=== PATIENT | female | born 1970 | race Caucasian/White ===

== ENCOUNTER → 2016-12-22 | Outpatient (CLI) | payer OTHER ==
[~2016-12-22] MED LIST: ACET-1256 PO; ASPI-390 PO; BUPR150T5 PO; MULT1CHW18 PO; PROB1CAP41 PO; PRT/40 PO
--- NOTE | 2016-12-22 11:55 | DIAGNOSTIC IMAGING REPORT ---
CHEST 2 VIEWS ROUTINE CLINICAL HISTORY: Cough. COMPARISON STUDY: Chest radiograph August 02, 2016. FINDINGS: Lung volumes are normal. Lungs are clear. There is no pneumothorax or pleural effusion. Cardiac size is normal. Mediastinal contours are normal. There is no evidence of pulmonary edema. IMPRESSION: No acute cardiopulmonary findings. Electronically signed by: Jenaro Elizabeth M.D. 12/22/2016 11:54 AM Dictated Date/Time: 12/22/2016 11:53 AM
[2016-12-22 16:09] LABS: INFLUENZA B PCR Neg for Influ B (NEG)
[2016-12-22 16:10] LABS: INFLUENZA A PCR POS for Influ A (NEG)
== END | disposition home or self-care (01) ==
LOC: C.RADBC 10:58
PROVIDERS: ATTEND Internal Medicine Geriatric Medicine
DX: R05 Cough (principal)

== ENCOUNTER 2017-04-02 12:39 | Emergency (ER) | payer OTHER ==
[~2017-04-02] VITALS: Ht 160 cm; Wt 102.5 kg
[~2017-04-02 12:39] MED LIST changes: -ACET-1256 PO; -MULT1CHW18 PO; -PRT/40 PO
[2017-04-02 12:47] VITALS: TEMP 36.8; Ht 160 cm; Wt 102.5 kg
[2017-04-02] MEDS ORDERED: SODIUM CHLORIDE 0.9% 1000ML 1,000 ML IV STA (13:20)
--- NOTE | 2017-04-02 13:28 | EMERGENCY ROOM VISIT NOTE ---
History First contact with patient: 13:07 Chief Complaint: FLU LIKE SX Stated Complaint: FEVER,BODYACHES,SORE THROAT,R ADB PN,OVERALL PAIN History of Present Illness The patient is a 46 year old female who presents to the Emergency Room with complaints of fever, abdominal pain and generalized malaise. The patient states that she has not been feeling well and has felt quite fatigued. She states that approximately 1 AM she woke up feeling feverish with chills. She states she has had a sore throat. She reports right ear pain, headache, neck pain. She rates her discomfort a 5/10. She took Tylenol overnight. 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 She contacted employee health who recommended she go to [email or web address] or the emergency department. The patient went to [email or web address] and had a negative urinalysis and a negative rapid strep. They referred her to the emergency department because she had right lower quadrant abdominal tenderness. At [email or web address] her temperature was found to be 100.5F. The patient denies any cough, chest pain, trouble breathing. She denies any vomiting or diarrhea. She denies any urinary symptoms. 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 She states that one patient was a possible meningitis but her CSF cultures have come back negative thus far. The patient has had hysterectomy in the past. Review of Systems A 10 system review of systems was completed with positives and pertinent negatives listed in the HPI. Past Medical/Surgical History Medical Problems: (1) Common Migraine W/O Intractable Migraine (2) Endometriosis Nec (3) Hyperlipidemia Nec/Nos (4) Hypothyroidism Nos (5) Lumbago (6) Obesity, Nos Surgical Problems: (1) Tubal Ligation Status Social History Smoking Status: Never Smoker Alcohol Use: none Drug Use: none Marital Status: Occupation Status: employed Current/Historical Medications Scheduled Lvitszt-Ztzkznocbckdz-Qtdtodbd (Excedrin Migraine), 2 TABS PO PRN Bupropion Hcl (Bupropion Hcl Xl), 300 MG PO QAM Multiple Vitamins W/ Minerals (Multivitamin Gummies Adul), 2 TAB PO QAM Pantoprazole (Pantoprazole Sodium), 40 MG PO QAM Probiotic Product (Probiotic Daily), 1 CAP PO DAILY Scheduled PRN Acetaminophen (Tylenol), 1,000 MG PO Q8 PRN for Pain or Fever Allergies Coded Allergies: Ollie (Verified Allergy, Unknown, ., 04/02/17) Physical Exam Vital Signs Date Time Temp Pulse Resp B/P (MAP) Pulse Ox O2 Delivery O2 Flow Rate FiO2 04/02/17 17:43 83 18 143/88 95 04/02/17 15:58 113 18 160/103 98 Room Air 04/02/17 14:36 100 16 139/94 100 Room Air 04/02/17 12:47 36.8 109 18 153/91 99 Room Air Physical Exam VITALS: Vitals are noted on the nurse's note and reviewed by myself. Vital signs stable. The patient is afebrile. She is slightly tachycardic with heart rate 109 bpm. Her oxygen saturation is 99% on room air. GENERAL: This is a 46-year-old female, in no acute distress, nondiaphoretic, well-developed well-nourished. SKIN: The skin was without rashes, erythema, edema, or bruising. There is no tenting of the skin. Capillary reflex less than 2 seconds. HEAD: Normocephalic atraumatic. EARS: External auditory canals clear, tympanic membranes pearly allen without erythema or effusion bilaterally. EYES: Pupils equal round and reactive to light and accommodation. Conjunctivae without injection, sclerae without icterus. Extraocular movements intact. NOSE: Patent, turbinates without inflammation or discharge. No sinus tenderness. MOUTH: Mucous membranes moist. Tonsils are not enlarged. Pharynx without erythema or exudate. Uvula midline. Airway patent. Tongue does not deviate. NECK: Supple without nuchal rigidity. No lymphadenopathy. No thyromegaly. Cervical spine is nontender. No JVD. HEART: Regular rate and rhythm without murmurs gallops or rubs. LUNGS: Clear to auscultation bilaterally without wheezes, rales or rhonchi. No retractions or accessory muscle use. ABDOMEN: Positive bowel sounds x 4. Soft, right lower quadrant tenderness, without masses or organomegaly. MUSCULOSKELETAL: No muscle atrophy, erythema, or edema noted. Full range of motion in all extremities. Normal gait. Strength 5/5 throughout. NEURO: Patient was alert and oriented to person place and time. No focal neurological deficits. Medical Decision & Procedures ER Provider Diagnostic Interpretation: CHEST ONE VIEW PORTABLE CLINICAL HISTORY: fever SORE THROAT, BODYACHES. COMPARISON STUDY: 12/22/2016 FINDINGS: The cardiac and mediastinal contours are normal. There is no evidence of focal pulmonary consolidation. There is no evidence of failure. No pleural effusions are visualized.[ IMPRESSION: No active disease in the chest. [~ rep ct add3]] CT SCAN OF THE ABDOMEN AND PELVIS WITH IV CONTRAST CLINICAL HISTORY: Right lower quadrant abdominal pain. Fever. COMPARISON STUDY: Abdominal CT dated 08/08/2014. Abdominal ultrasound dated 01/19/2012. TECHNIQUE: Following the IV administration of 115 cc of Optiray 320, CT scan of the abdomen and pelvis is performed from the lung bases to the proximal femora. Images are reviewed in the axial, sagittal, and coronal planes. IV contrast was administered without complication. Automated dose control exposure was utilized. The examination is degraded by large body habitus, and by streak artifact from the body wall abutting the CT gantry. CT DOSE: 884.54 mGy.cm FINDINGS: Lung bases: The heart is normal in size and without pericardial effusion. The lung bases are clear. There is a small hiatal hernia. Liver: The contrast-enhanced liver is mildly enlarged measuring 18.5 cm in length. The liver demonstrates diffusely diminished attenuation consistent with hepatic steatosis. There is minimal central intrahepatic biliary ductal dilatation. A 1.3 cm low-attenuation lesion in the right lobe on image #116 is unchanged from prior studies and likely represents a benign hemangioma. The hepatic veins and portal veins are patent. Gallbladder: Surgically absent noting clips in the gallbladder fossa. Spleen: Normal in size and attenuation. Pancreas: Unremarkable. Adrenal glands: Unremarkable. Kidneys: The contrast enhanced kidneys are normal in size and without hydronephrosis. There is mild fullness of the renal collecting system bilaterally. The kidneys enhance symmetrically. Abdominal vasculature: The abdominal aorta is normal in course and caliber noting scattered foci of atherosclerotic calcification. Bowel: The small bowel and colon are normal in course and caliber. There are several duodenal diverticula. There is mild colonic diverticulosis without CT evidence of acute diverticulitis. Moderate colonic fecal retention is observed. The appendix is well-visualized and normal. Peritoneum: There is no intraperitoneal free air or abdominal ascites. Lymphadenopathy: None. Pelvic viscera: The bladder is normal as visualized. The uterus is surgically absent. There are numerous left ovarian follicles. Skeletal structures: No lytic or blastic lesions are seen. IMPRESSION: 1. There are no acute infectious or inflammatory findings in the abdomen or pelvis. 2. Hepatomegaly and mild hepatic steatosis. 3. Status post hysterectomy and cholecystectomy. 4. Mild colonic diverticulosis without CT evidence of acute diverticulitis. 5. Additional findings as above. Laboratory Results 04/02/17 13:30 Red Blood Count 4.76, Mean Corpuscular Volume 83.6, Mean Corpuscular Hemoglobin 28.4, Mean Corpuscular Hemoglobin Concent 33.9, Mean Platelet Volume 9.4, Neutrophils (%) (Auto) 76.3, Lymphocytes (%) (Auto) 14.9, Monocytes (%) (Auto) 7.7, Eosinophils (%) (Auto) 0.6, Basophils (%) (Auto) 0.4, Neutrophils # (Auto) 6.46, Lymphocytes # (Auto) 1.26, Monocytes # (Auto) 0.65, Eosinophils # (Auto) 0.05, Basophils # (Auto) 0.03 04/02/17 13:30 Test 04/02/17 13:30 04/02/17 13:35 04/02/17 13:37 White Blood Count 8.46 K/uL (4.8-10.8) Red Blood Count 4.76 M/uL (4.2-5.4) Hemoglobin 13.5 g/dL (12.0-16.0) Hematocrit 39.8 % (37-47) Mean Corpuscular Volume 83.6 fL (80-100) Mean Corpuscular Hemoglobin 28.4 pg (25-34) Mean Corpuscular Hemoglobin Concent 33.9 g/dl (32-36) Platelet Count 203 K/uL (130-400) Mean Platelet Volume 9.4 fL (7.4-10.4) Neutrophils (%) (Auto) 76.3 % Lymphocytes (%) (Auto) 14.9 % Monocytes (%) (Auto) 7.7 % Eosinophils (%) (Auto) 0.6 % Basophils (%) (Auto) 0.4 % Neutrophils # (Auto) 6.46 K/uL (1.4-6.5) Lymphocytes # (Auto) 1.26 K/uL (1.2-3.4) Monocytes # (Auto) 0.65 K/uL (0.11-0.59) Eosinophils # (Auto) 0.05 K/uL (0-0.5) Basophils # (Auto) 0.03 K/uL (0-0.2) RDW Standard Deviation 39.5 fL (36.4-46.3) RDW Coefficient of Variation 13.0 % (11.5-14.5) Immature Granulocyte % (Auto) 0.1 % Immature Granulocyte # (Auto) 0.01 K/uL (0.00-0.02) Anion Gap 9.0 mmol/L (3-11) Est Creatinine Clear Calc Drug Dose 81.2 ml/min Estimated GFR () 78.8 Estimated GFR (Non- 68.0 BUN/Creatinine Ratio 14.8 (10-20) Calcium Level 8.8 mg/dl (8.5-10.1) Total Bilirubin 0.7 mg/dl (0.2-1) Aspartate Amino Transf (AST/SGOT) 14 U/L (15-37) Alanine Aminotransferase (ALT/SGPT) 25 U/L (12-78) Alkaline Phosphatase 122 U/L (45-117) Total Protein 7.3 gm/dl (6.4-8.2) Albumin 3.8 gm/dl (3.4-5.0) Globulin 3.5 gm/dl (2.5-4.0) Albumin/Globulin Ratio 1.1 (0.9-2) Lipase 145 U/L (73-393) Monoscreen NEG (NEG) Influenza Type A Antigen Neg for Influ A (NEG) Influenza Type B Antigen Neg for Influ B (NEG) Lactic Acid Level 1.0 mmol/L (0.4-2.0) Urine Color YELLOW Urine Appearance CLEAR (CLEAR) Urine pH 5.0 (4.5-7.5) Urine Specific [place] 1.032 (1.000-1.030) Urine Protein NEG (NEG) Urine Glucose (UA) NEG (NEG) Urine Ketones TRACE (NEG) Urine Occult Blood NEG (NEG) Urine Nitrite NEG (NEG) Urine Bilirubin NEG (NEG) Urine Urobilinogen NEG (NEG) Urine Leukocyte Esterase NEG (NEG) Medications Administered Medications (Trade) Dose Ordered Sig/Christopher Route Start Time Stop Time Status Last Admin Dose Admin Sodium Chloride 1,000 ml @ 999 mls/hr Q1H1M STAT IV 04/02/17 13:20 04/02/17 14:20 DC 04/02/17 13:20 999 MLS/HR ED Course The patient was seen and examined. Previous visits were reviewed. The patient does not have a fever or leukocytosis. She does not have any significant electrolyte abnormalities. Lactic acid is not elevated. Blood cultures are pending. Lipase was not elevated. Urinalysis was negative. [place] was negative. Influenza was negative. Chest x-ray was negative. CT scan of the abdomen and pelvis with IV and oral contrast was obtained as above. There are chronic findings of liver hemangioma and hepatic steatosis. She was advised of these findings. There was some delay in obtaining the CT imaging. The patient was not given the oral contrast. At the 2 hour gogo she was sent to CT scan but has not had any oral contrast. At this time, we did do a trauma prep oral contrast. The patient presents to the emergency department with nonspecific flulike symptoms. She has had arthralgias, myalgia, earache, sore throat and fever since last night. 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 The patient does not have any significant neck stiffness, nuchal rigidity to suggest meningitis. She did not have a fever and does not have a leukocytosis. I discussed the possibility of doing a lumbar puncture but the patient would like to defer at this time. This may represent a viral illness. The exact etiology is not clear at this time. The patient should follow-up with her family doctor next week if she is not feeling any better. She may need to have a Monospot were strap repeated. She should return to the ER with any worsening symptoms. The case was discussed with Dr. Mishra who agrees with the assessment and treatment plan. Medication Reconciliation: I attest that I have personally reviewed the patient' s current medication list. Medical Decision DIFFERENTIAL DIAGNOSIS: Hepatitis, cholecystitis, cholangitis, biliary colic, pancreatitis, pneumonia, subdiaphragmatic abscess, appendicitis, inguinal hernia , nephrolithiasis, inflammatory bowel disease, mesenteric adenitis, peptic ulcer disease, GERD, gastritis, pancreatitis, myocardial infarction, pericarditis, ruptured aortic aneurysm, appendicitis, gastroenteritis, bowel obstruction, splenic infarct, diverticulitis, mesenteric ischemia, metabolic, peritonitis, meningitis, viral illness, mononucleosis, strep pharyngitis, among others. Impression Primary Impression: Influenza-like symptoms Additional Impression: Right lower quadrant pain Departure Information Dispostion Home / Self-Care Condition GOOD Referrals José Miguel Apple M.D. (PCP) Forms HOME CARE DOCUMENTATION FORM, IMPORTANT VISIT INFORMATION, Work Instructions Return To Work: 1 day Patient Instructions ED URI Viral, My [facility] Additional Instructions Return with worsening headache, neck stiffness or generalized worsening symptoms Tylenol according to package instructions Otherwise, recheck with your family doctor on Wednesday if symptoms persist. You may need repeat strep or mono testing Problem Qualifiers
[2017-04-02 14:00] LABS: BASO % 0.4 %; BASO ABS # 0.03 K/uL (0-0.2); COMPLETE YES; EOS % 0.6 %; HEMATOCRIT 39.8 % (37-47); IG% 0.1 %; LYMPH % 14.9 %; LYMPH ABS # 1.26 K/uL (1.2-3.4); MEAN CELL VOLUME 83.6 fL (80-100); MEAN CORPUSCULAR HEMOGLOBIN 28.4 pg (25-34); MEAN CORPUSCULAR HGB CONC 33.9 g/dl (32-36); MEAN PLATELET VOLUME 9.4 fL (7.4-10.4); MONO % 7.7 %; NEUT % 76.3 %; PLATELET COUNT 203 K/uL (130-400); RED BLOOD COUNT 4.76 M/uL (4.2-5.4); WHITE BLOOD COUNT 8.46 K/uL (4.8-10.8)
[2017-04-02 14:20] LABS: URINE APPEARANCE CLEAR (CLEAR); URINE BILIRUBIN NEG (NEG); URINE COLOR YELLOW; URINE NITRITE NEG (NEG); URINE SPECIFIC GRAVITY 1.032 (1.000-1.030); UROBILINOGEN NEG (NEG); ZZUR CULT IF INDIC CLEAN CATCH NO
[2017-04-02 14:21] LABS: BUN/CREATININE RATIO 14.8 (10-20); CALCIUM 8.8 mg/dl (8.5-10.1); POTASSIUM 3.9 mmol/L (3.5-5.1)
[2017-04-02 14:24] LABS: ALB/GLOB RATIO 1.1 (0.9-2)
[2017-04-02 14:25] LABS: MANUAL MICROSCOPIC REQUIRED? NO; REVIEW REQ? NO
--- NOTE | 2017-04-02 14:25 | DIAGNOSTIC IMAGING REPORT ---
CHEST ONE VIEW PORTABLE CLINICAL HISTORY: fever SORE THROAT, BODYACHES. COMPARISON STUDY: 12/22/2016 FINDINGS: The cardiac and mediastinal contours are normal. There is no evidence of focal pulmonary consolidation. There is no evidence of failure. No pleural effusions are visualized.[ IMPRESSION: No active disease in the chest. Electronically signed by: Robert Jacobs M.D. 04/02/2017 2:24 PM Dictated Date/Time: 04/02/2017 2:24 PM
[2017-04-02] MEDS ORDERED: PANT40TA2 PO (14:47)
[2017-04-02] MEDS ORDERED: MULT1CHW18 PO (14:51)
[2017-04-02] MEDS ORDERED: ACET-1256 PO (14:51)
--- NOTE | 2017-04-02 17:20 | DIAGNOSTIC IMAGING REPORT ---
CT SCAN OF THE ABDOMEN AND PELVIS WITH IV CONTRAST CLINICAL HISTORY: Right lower quadrant abdominal pain. Fever. COMPARISON STUDY: Abdominal CT dated 08/08/2014. Abdominal ultrasound dated 01/19/2012. TECHNIQUE: Following the IV administration of 115 cc of Optiray 320, CT scan of the abdomen and pelvis is performed from the lung bases to the proximal femora. Images are reviewed in the axial, sagittal, and coronal planes. IV contrast was administered without complication. Automated dose control exposure was utilized. The examination is degraded by large body habitus, and by streak artifact from the body wall abutting the CT gantry. CT DOSE: 884.54 mGy.cm FINDINGS: Lung bases: The heart is normal in size and without pericardial effusion. The lung bases are clear. There is a small hiatal hernia. Liver: The contrast-enhanced liver is mildly enlarged measuring 18.5 cm in length. The liver demonstrates diffusely diminished attenuation consistent with hepatic steatosis. There is minimal central intrahepatic biliary ductal dilatation. A 1.3 cm low-attenuation lesion in the right lobe on image #116 is unchanged from prior studies and likely represents a benign hemangioma. The hepatic veins and portal veins are patent. Gallbladder: Surgically absent noting clips in the gallbladder fossa. Spleen: Normal in size and attenuation. Pancreas: Unremarkable. Adrenal glands: Unremarkable. Kidneys: The contrast enhanced kidneys are normal in size and without hydronephrosis. There is mild fullness of the renal collecting system bilaterally. The kidneys enhance symmetrically. Abdominal vasculature: The abdominal aorta is normal in course and caliber noting scattered foci of atherosclerotic calcification. Bowel: The small bowel and colon are normal in course and caliber. There are several duodenal diverticula. There is mild colonic diverticulosis without CT evidence of acute diverticulitis. Moderate colonic fecal retention is observed. The appendix is well-visualized and normal. Peritoneum: There is no intraperitoneal free air or abdominal ascites. Lymphadenopathy: None. Pelvic viscera: The bladder is normal as visualized. The uterus is surgically absent. There are numerous left ovarian follicles. Skeletal structures: No lytic or blastic lesions are seen. IMPRESSION: 1. There are no acute infectious or inflammatory findings in the abdomen or pelvis. 2. Hepatomegaly and mild hepatic steatosis. 3. Status post hysterectomy and cholecystectomy. 4. Mild colonic diverticulosis without CT evidence of acute diverticulitis. 5. Additional findings as above. Electronically signed by: Dionte Lucas M.D. 04/02/2017 5:19 PM Dictated Date/Time: 04/02/2017 5:08 PM
[2017-04-02 17:43] VITALS: BP 143/88; PULSE 83; O2SAT 95
== END 2017-04-02 17:58 | disposition home or self-care (01) ==
LOC: C.EDB 12:42
DX: R50.9 Fever, unspecified (principal); M25.50 Pain in unspecified joint; M79.1 Myalgia; R53.83 Other fatigue; H92.01 Otalgia, right ear; R51 Headache; J02.9 Acute pharyngitis, unspecified; R10.31 Right lower quadrant pain; M54.2 Cervicalgia; E78.5 Hyperlipidemia, unspecified; E03.9 Hypothyroidism, unspecified; M54.5 Low back pain; E66.9 Obesity, unspecified; Z90.710 Acquired absence of both cervix and uterus

== ENCOUNTER → 2017-09-15 | Outpatient (CLI) | payer OTHER ==
[~2017-09-15] MED LIST changes: +ACET-1256 PO; +MULT1CHW18 PO; +PANT40TA2 PO
--- NOTE | 2017-09-15 15:30 | DIAGNOSTIC IMAGING REPORT ---
KUB CLINICAL HISTORY: 47 years-old Female presenting with FLANK PAIN, ACUTE. TECHNIQUE: Single supine view of the abdomen was obtained. COMPARISON: CT from 04/02/2017. FINDINGS: Cholecystectomy clips. Normal bowel gas pattern. No evidence of free intraperitoneal gas, pneumatosis, or portal venous gas. Allowing for bowel gas and stool, no calcifications to suggest nephrolithiasis. Transitional lumbosacral anatomy. Osseous structures otherwise normal. Lung bases clear. IMPRESSION: 1. No acute intra-abdominal pathology. No radiographic evidence of nephrolithiasis. Electronically signed by: José Miguel Piedra M.D. 09/15/2017 3:28 PM Dictated Date/Time: 09/15/2017 3:27 PM
[2017-09-15 17:20] LABS: BASO % 0.3 %; BASO ABS # 0.03 K/uL (0-0.2); COMPLETE YES; EOS % 1.3 %; IG% 0.1 %; LYMPH ABS # 2.18 K/uL (1.2-3.4); MEAN CELL VOLUME 84.3 fL (80-100); MEAN CORPUSCULAR HEMOGLOBIN 27.3 pg (25-34); MEAN CORPUSCULAR HGB CONC 32.3 g/dl (32-36); MEAN PLATELET VOLUME 9.6 fL (7.4-10.4); MONO % 7.3 %; PLATELET COUNT 255 K/uL (130-400); WHITE BLOOD COUNT 9.07 K/uL (4.8-10.8)
[2017-09-15 17:55] LABS: URINE APPEARANCE CLEAR (CLEAR); URINE BILIRUBIN NEG (NEG); URINE COLOR YELLOW; URINE EPITHELIAL CELL AUTO 0-5 /lpf (0-5); URINE NITRITE NEG (NEG); URINE SPECIFIC GRAVITY 1.015 (1.000-1.030); UROBILINOGEN NEG (NEG)
[2017-09-15 17:56] LABS: MANUAL MICROSCOPIC REQUIRED? NO; REVIEW REQ? NO
[2017-09-15 18:58] LABS: LYME DISEASE AB IGG NEG (NEG); LYME DISEASE AB IGM NEG (NEG)
== END | disposition home or self-care (01) ==
LOC: C.RADBC 14:27
PROVIDERS: ATTEND Physician Assistant Medical
DX: R10.9 Unspecified abdominal pain (principal); M79.1 Myalgia

== ENCOUNTER 2019-07-17 09:18 | Observation (INO) ==
[2019-07-17] MEDS ORDERED: SODIUM CHLORIDE 0.9% 1000ML 2,000 ML IV ONE (09:26)
[2019-07-17 09:43] LABS: Basophils # (auto) 0.02 K/uL (0-0.2); Basophils % (auto) 0.3 %; Eosinophils # (auto) 0.06 K/uL (0-0.5); Eosinophils % (auto) 0.8 %; Hematocrit (blood only) 42.1 % (37-47); Hemoglobin 13.9 g/dL (12.0-16.0); Immature Granulocytes # (auto) 0.03 K/uL (0.00-0.02); Immature Granulocytes % (auto) 0.4 %; Lymphocytes # (auto) 1.99 K/uL (1.2-3.4); Lymphocytes % (auto) 25.2 %; Mean Corpuscular Hemoglobin 27.7 pg (25-34); Mean Corpuscular Volume 83.9 fL (80-100); Mean Platelet Volume 9.4 fL (7.4-10.4); Monocytes # (auto) 0.51 K/uL (0.11-0.59); Monocytes % (auto) 6.5 %; Neutrophils # (auto) 5.29 K/uL (1.4-6.5); Neutrophils % (auto) 66.8 %; Platelet Count 214 K/uL (130-400); RDW Coefficient of Variation 12.9 % (11.5-14.5); RDW Standard Deviation 38.8 fL (36.4-46.3); Red Blood Count 5.02 M/uL (4.2-5.4)
[2019-07-17] MEDS ORDERED: ONDANSETRON INJ 2 MG/ML 2 ML VIAL IV STA ×3 (09:57→12:58)
[2019-07-17 09:58] LABS: Pregnancy Test, Serum Negative (Negative)
[2019-07-17 10:02] LABS: Albumin Level 3.6 gm/dl (3.4-5.0); BUN Creatinine Ratio 16.3 (10-20); Creatinine Clr Calc Pharmacy 73.8 ml/min; Est GFR (African American) 71.9; Potassium 3.8 mmol/L (3.5-5.1)
[2019-07-17 10:05] LABS: Bilirubin,Total 0.3 mg/dl (0.2-1); Globulin 3.7 gm/dl (2.5-4.0); Total Protein 7.3 gm/dl (6.4-8.2)
[2019-07-17] MEDS ORDERED: IOVERSOL 100ml IV PRN (10:21)
[2019-07-17 10:30] LABS: Appearance Urine Cloudy (Clear); Bacteria Urine Automated 1+ (Negative); Bilirubin Urine Negative (Negative); Blood Urine Negative (Negative); Color Urine Yellow; Epithelial Cell Urine Auto >30 /lpf (0-5); Glucose Urine UA Negative (Negative); Ketones Urine Negative (Negative); Leukocyte Esterase Urine Negative (Negative); Nitrite Urine Negative (Negative); Protein Urine Negative (Negative); RBC Urine Automated 0-4 /hpf (0-4); Specific Gravity Urine 1.021 (1.000-1.030); Urobilinogen Urine Negative (Negative)
--- NOTE | 2019-07-17 10:37 | CT Scan Report ---
CT abd pelvis IV con only CLINICAL HISTORY: 49 years-old Female presenting with right lower quadrant abdominal pain. TECHNIQUE: Multidetector CT of the abdomen and pelvis was performed after the administration of intra venous contrast. IV contrast: 95 mL of Optiray 320. One or more dose lowering techniques were used co nsistent with the principles of ALARA (as low as reasonably achievable), including automatic exposure control, mA or kV adjustment to individual patient size, and/or use of iterative reconstruction. COMPARISON: 06/08/2019. CT DOSE (mGy.cm): The estimated cumulative dose is 990.44 mGy.cm. FINDINGS: [employer] topogram: Cholecystectomy clips. Lung bases: Normal heart size. No pericardial or pleural effusion. No focal infiltrate or nodule at t he lung bases. Liver: Normal morphology. Subcentimeter mildly hypodense fairly well-defined lesion in the inferior r ight hepatic lobe, possibly hemangioma or cyst. Patent hepatic vasculature. Biliary: Mild biliary ductal prominence likely a reservoir effect in the post cholecystectomy state. Gallbladder surgically absent. Pancreas: Normal. Spleen: Normal. Adrenal glands: Normal. Kidneys and ureters: Normal. No hydronephrosis. Bladder: Incompletely evaluated secondary to underdistention. Pelvic organs: Uterus surgically absent. Normal left ovary. Right ovary not visualized. Bowel: Diverticulosis of the sigmoid and descending colon. The prior site of pericolonic fat infiltra tion along the mid to distal sigmoid has resolved. No colonic wall thickening. Scattered colonic dive rticula also noted elsewhere. The appendix is normal. No bowel obstruction. Several duodenal divertic gunjan at the level of the descending and horizontal portions. Trace sliding-type hiatal hernia. Peritoneal cavity: Trace free fluid in the pelvis, which appears to be free intraperitoneal fluid. No focal fluid collection to suggest abscess. No free intraperitoneal gas. Lymph nodes: No enlarged lymph nodes in the abdomen or pelvis. Vasculature: Atherosclerosis of the normal caliber abdominal aorta. IVC patent. Abdominal wall: Normal. Musculoskeletal: Normal. IMPRESSION: 1. Resolution of prior acute sigmoid diverticulitis. No current evidence of diverticulitis or a comp lication there of. 2. Diverticulosis coli. 3. No appendicitis. No acute intra-abdominal pathology. Electronically signed by: José Miguel Piedra M.D. 07/17/2019 10:36 AM
[2019-07-17 10:48] LABS: Mucus Urine Present (None Prsent)
[2019-07-17] MEDS ORDERED: MoRPHine SULFATE 4 MG/ML 1 ML CARP\\VIAL IV STA ×2 (10:49→12:58)
--- NOTE | 2019-07-17 14:33 | Gastrointestinal Consultation ---
Date of Consultation July 17, 2019 Assessment & Plan (1) Abdominal pain: (2) Nausea: (3) Heme positive stool: Pt is a 49 y/o female w hx of diverticulitis back in June, currently presented to ED w worsening symptoms in last few days of epigastric & mid abd pain, nausea, feeling feverish. Early this AM started to have loose stools which are black in color. Exam by ED physician reported black stools, heme positive. VS stable, CBC, BUN/Cr normal. CT abd/pelvis showed resolution of prior sigmoid diverticulitis and no signs of obstruction. - Check stool cx and Cdiff to r/o infectious processes - IVF support - Protonix 40mg PO BID - NPO after midnight; plan for EGD eval tomorrow 07/[address] Gordillo - Dicyclomine 10mg TID prn abd pain/cramping - Symptomatic management w antiemetics and analgesics otherwise Supervising Physician Co-Signing Physician Notes I saw and evaluated the patient. We are consulted for epigastric pain and a history of dark stools. Of note the patient did have a recent episode of diverticulitis and recently completed a course of ciprofloxacin and metronidazole. She notes that her pain is localized to the mid epigastric region sometimes radiates towards the right and sometimes towards the left-hand side. Her bowel habits are described as irregular and mostly loose with a dark discoloration. Physical examination No obvious distress Abdomen mild tenderness noted in the left upper quadrant, right lower quadrant and mid epigastric region Impression: Patient with a recent history of diverticulitis treated with ciprofloxacin and metronidazole. I would recommend screening for C. difficile infection with a C. difficile PCR. Given the dark stool we are certainly happy to arrange an upper endoscopy to evaluate for evidence of peptic ulcer disease. Recommendations May have clear liquids this afternoon N.p.o. at midnight for upper endoscopy Wednesday Protonix drip Please send stool for C. difficile History of Present Illness Reason for Consultation: GI bleed, abd pain Requesting Physician: Dr. Kvng Aguilera Attending Physician: Dr. Lorrie Gordillo History of Present Illness Pt is a 49 y/o female who presented to ED w c/o worsening of abd pain, nausea w/o vomiting and black loose stools which started early this morning. Has associated feverish feeling, epigastric pressure and increased reflux symptoms along with mid abd pain for a few days prior to last night. She was taking Protonix, Dicyclomine, Colestipol for the reflux, abd pain and diarrhea symptoms but not improved. She had hx of uncomplicated sigmoid diverticulitis back early June, s/p treatment w Cipro/Flagyl. She initially thought that she had diverticulitis recurrence as symptoms are similar. However CT abd/pelvis done today showed resolution of the sigmoid diverticulitis. CT also w/o signs of bowel obstruction. Exam done by ED physician showed black stools which tested heme positive. 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 No sidra blood noted in stools. Her labs are reviewed - normal CBC, BUN not elevated. VS stable. Prior hx of EGD/colonoscopy in 2016 w signs of hiatal hernia, gastritis, diverticulosis. Denies NSAIDs, ETOH, tobacco. Denies any recent sick contact, undercooked/raw foods. Allergies Allergy/AdvReac Type Severity Reaction Status Date / Time strawberry AdvReac Severe Anaphylaxis Verified 07/17/19 10:23 acetaminophen [From Percocet] AdvReac Mild Itchy Verified 07/17/19 10:23 oxycodone [From Percocet] AdvReac Mild Itchy Verified 07/17/19 10:23 Home Medications Home Medications Medication Instructions Recorded Confirmed Type ascorbic acid (vitamin C) 500 mg 1,000 mg PO QAM tab 02/14/19 07/17/19 History chewable tablet topiramate 25 mg tablet 25 mg PO BID 04/12/19 07/17/19 History colestipol 1 gram tablet 2,000 g PO QAM #30 tab 05/01/19 07/17/19 History buspirone 5 mg tablet 5 mg PO TID PRN #90 tab 05/02/19 07/17/19 Rx cholecalciferol (vitamin D3) 1,000 1,000 units PO QDD 06/06/19 07/17/19 History unit capsule Advantage Probiotic Gummie 2 tab PO QAM 06/08/19 07/17/19 History [id number] acid-[id number] 2 tab PO QAM 06/08/19 07/17/19 History [Alive Women's Gummy Vitamin] pantoprazole 40 mg tablet,delayed 40 mg PO BID #180 tab 06/08/19 07/17/19 Rx release ibuprofen [Advil] 200 mg PO Q6H PRN 07/17/19 07/17/19 History Patient History Medical History Fatigue (Acute) Elevated blood pressure reading (Acute) Diverticulosis of colon (Acute) Anxiety (Acute) Abnormal weight gain (Acute) GERD without esophagitis (Acute) Headache (Acute) Hyperlipidemia (Acute) Hypothyroidism, unspecified (Acute) Migraine (Acute) Obesity, unspecified (Acute) Status post tubal ligation (Acute) Headaches, cluster (Chronic) GERD (gastroesophageal reflux disease) (Chronic) IBS (irritable bowel syndrome) (Chronic) Surgical History Cholecystectomy planned (Resolved) History of hysterectomy (Resolved) Family History Aunt Migraines Breast cancer Mother Hypothyroidism Father Cardiac disorder Diabetes Grandfather Cardiac disorder Diabetes Grandfather Cardiac disorder Prostate cancer Social History Preferred Language: Paraguayan Communication Ability: Effective Visual Impairment: No Limitations Hearing Ability: Normal Heel Sprayer First Required: No marital status: Current Living Situation: Spouse current occupational status: employed 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 Feels Safe at Home: Yes Smoking Status: Never smoker Hx Alcohol Use: Yes (Occasionally) Alcohol type: wine Hx Substance Use: No Review of Systems Review of Systems: All systems reviewed & are unremarkable except as noted in HPI & below Physical Exam Constitutional: WD/WN, vitals as above well groomed, cooperative and comfortable Eyes: PERRL, conjunctivae normal, anicteric sclerae ENMT: external ear and nose normal, oropharynx normal Respiratory: normal respiratory effort, lungs clear to auscultation Cardiovascular: RRR, no murmur, no edema Gastrointestinal (Abdomen): Inspection/Auscultation: normal bowel sounds Percussion/Palpation: + abdomen tender (mid abd area ) and abdomen soft Skin: no rashes, warm and dry no jaundice Neurologic: Motor/Sensory: no asterixis Psychiatric: A+Ox3, euthymic affect Lymphatic: no lymphedema Results & Data Vital Signs (Past 12 Hours) Vital Signs Temp Pulse Pulse Resp BP BP Pulse Ox 07/17/19 13:15 82 17 145/87 H 100 07/17/19 11:19 82 17 134/73 100 07/17/19 09:30 89 18 97 07/17/19 09:20 36.7 C 89 18 155/96 H 97 (1) Abdominal pain Abdominal location: unspecified location Qualified Code(s): R10.9 - Unspecified abdominal pain
[2019-07-17] MEDS ORDERED: DICYCLOMINE HCL 10 MG CAP PO PRN (14:38)
--- NOTE | 2019-07-17 15:09 | History & Physical Report ---
Date of Service July 17, 2019 Assessment & Plan (1) Heme positive stool: 49-year-old female with history of GERD, IBS, migraines, anxiety and recent history of diverticulitis presents with persistent abdominal pain and heme positive stools. Patient also describes having significant diarrhea. The patient has no signs and symptoms of acute blood loss, but had heme positive stools. The pain was considerable in the epigastrium and radiating into her back this since become generalized in the right lower quadrant. The patient is being admitted for GI work-up including scheduled EGD tomorrow. Abdominal pain, diarrhea, heme positive stools GI consulted, appreciate recommendations 2 L IV fluid in the ED, continue maintenance fluids at 125 cc/h Continue Protonix 40 mg twice daily, Bentyl Patient n.p.o. after midnight, scheduled for EGD tomorrow morning Hemoglobin was within normal limits, no significant signs or symptoms of acute blood loss, continue to follow CBC C. difficile testing considering recent history of antibiotics and persistent diarrhea GERD/IBS Protonix, Bentyl as above Anxiety Buspirone 5 mg 3 times daily Migraines Topiramate 25 mg twice daily Hyperlipidemia Continue colestipol DVT prophylaxisencouraged patient to ambulate, chemical prophylaxis contraindicated in the setting of heme positive stools CODE STATUSfull code FENnormal saline 125 cc/h, clear liquid diet, n.p.o. after midnight (2) Abdominal pain: (3) Nausea: (4) Acute GI bleeding: (5) Fatigue: (6) Diverticulosis of colon: (7) GERD without esophagitis: (8) Hyperlipidemia: (9) Hypothyroidism, unspecified: (10) Migraine: (11) GERD (gastroesophageal reflux disease): History of Present Illness Primary Care Provider: José Miguel Apple MD 49-year-old female with IBS, GERD, migraine headaches, anxiety and recent history of diverticulitis presents after 1 day of significant epigastric pain and melanotic stools. She states that the abdominal pain became severe this afternoon and was radiating into her back. She stated that the pain also migrated into the right lower quadrant. Patient was recently treated for diverticulitis in June. She has a past medical history of diverticulosis diagnosed on a colonoscopy in 2015. She states that she began to have chronic abdominal symptoms around that time 2015. She has had extensive work-ups over the past with ultimately a diagnosis of IBS and GERD. She believes that her symptoms are aggravated by stressshe describes an increase of stress over the summer which correlates with worsening IBS symptoms. She has a history of diarrhea and constipation, but recently has been on antibiotics for diverticulitis and has had predominantly loose stools. She has not seen sidra blood in her stools. She did take ibuprofen this morning which did not help with the pain. She does not take NSAIDs on a regular basis. The patient is not on a blood thinner. She denies a family history of IBD or colon cancer. Review of systems Constitutional; patient denies fevers, chills CV; denies chest pain Pulmonary; denies shortness of breath Abdomen; abdominal pain, nausea/diarrhea as described above Allergies Allergy/AdvReac Type Severity Reaction Status Date / Time strawberry AdvReac Severe Anaphylaxis Verified 07/17/19 10:23 acetaminophen [From Percocet] AdvReac Mild Itchy Verified 07/17/19 10:23 oxycodone [From Percocet] AdvReac Mild Itchy Verified 07/17/19 10:23 Home Medications Home Medications Medication Instructions Recorded Confirmed Type ascorbic acid (vitamin C) 500 mg 1,000 mg PO QAM tab 02/14/19 07/17/19 History chewable tablet topiramate 25 mg tablet 25 mg PO BID 04/12/19 07/17/19 History colestipol 1 gram tablet 2,000 g PO QAM #30 tab 05/01/19 07/17/19 History buspirone 5 mg tablet 5 mg PO TID PRN #90 tab 05/02/19 07/17/19 Rx cholecalciferol (vitamin D3) 1,000 1,000 units PO QDD 06/06/19 07/17/19 History unit capsule Advantage Probiotic Gummie 2 tab PO QAM 06/08/19 07/17/19 History [id number] [id number] 2 tab PO QAM 06/08/19 07/17/19 History [Alive Women's Gummy Vitamin] pantoprazole 40 mg tablet,delayed 40 mg PO BID #180 tab 06/08/19 07/17/19 Rx release ibuprofen [Advil] 200 mg PO Q6H PRN 07/17/19 07/17/19 History Past Med/Surg History Medical History Fatigue (Acute) Elevated blood pressure reading (Acute) Diverticulosis of colon (Acute) Anxiety (Acute) Abnormal weight gain (Acute) GERD without esophagitis (Acute) Headache (Acute) Hyperlipidemia (Acute) Hypothyroidism, unspecified (Acute) Migraine (Acute) Obesity, unspecified (Acute) Status post tubal ligation (Acute) Headaches, cluster (Chronic) GERD (gastroesophageal reflux disease) (Chronic) IBS (irritable bowel syndrome) (Chronic) Surgical History Cholecystectomy planned (Resolved) History of hysterectomy (Resolved) Family History Aunt Migraines Breast cancer Mother Hypothyroidism Father Cardiac disorder Diabetes Grandfather Cardiac disorder Diabetes Grandfather Cardiac disorder Prostate cancer Social History Preferred Language: Khmer Communication Ability: Effective Visual Impairment: No Limitations Hearing Ability: Normal Correspondence Renew Clerk Required: No Beliefs That Will Affect Care: None marital status: Current Living Situation: Spouse current occupational status: employed 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 Other Information That Helps Us Care for You: No Feels Safe at Home: Yes Safety Concerns: Feels Safe At This Time Smoking Status: Never smoker Do You Dip or Chew Tobacco: No ; Second Hand Exposure: No ; Tobacco Cessation Education Requested by Patient: No Hx Alcohol Use: Yes Alcohol type: wine Hx Substance Use: No Review of Systems Review of Systems: All systems reviewed & are unremarkable except as noted in HPI & below Physical Exam Constitutional: WD/WN, vitals as above Eyes: PERRL, conjunctivae normal, anicteric sclerae ENMT: external ear and nose normal, oropharynx normal Neck: trachea midline, no thyromegaly Respiratory: normal respiratory effort, lungs clear to auscultation Cardiovascular: RRR, no murmur, no edema Gastrointestinal (Abdomen): normal bowel sounds, soft, nontender, no hepatosplenomegaly Musculoskeletal: no cyanosis or clubbing, extremities motor strength 5/5 Skin: no rashes, warm and dry Neurologic: PERRL, EOMI, accommodation nl, no face palsy, no dysarthria Psychiatric: A+Ox3, euthymic affect Results & Data Vital Signs (Past 12 Hours) Vital Signs Temp Pulse Pulse Resp BP BP Pulse Ox 07/17/19 13:15 82 17 145/87 H 100 07/17/19 11:19 82 17 134/73 100 07/17/19 09:30 89 18 97 07/17/19 09:20 36.7 C 89 18 155/96 H 97 [phone] Report Patient: STEFFI MULLINS Date: 07/17/19 MR#: [id number]: [address] Acct ID:[id number]: Date: [address] Zip: [place] [address] Age: 49Location: ED Sex: F Room/Bed: Att Phy:Diagnosis: RT SIDED ABD/BACK PAIN, NAUSEA, DIARRHEA Reina Phy: José Miguel Appleervmireya Date: 07/17/19 Fam Phy:Interpreting Phy: José Miguel Piedra MD Admit Phy: Ordering Phy: Kvng Aguilera DO cc: ~ CT abd pelvis IV con only CLINICAL HISTORY: 49 years-old Female presenting with right lower quadrant abdominal pain. TECHNIQUE: Multidetector CT of the abdomen and pelvis was performed after the administration of intravenous contrast. IV contrast: 95 mL of Optiray 320. One or more dose lowering techniques were used consistent with the principles of ALARA (as low as reasonably achievable), including automatic exposure control, mA or kV adjustment to individual patient size, and/or use of iterative reconstruction. COMPARISON: 06/08/2019. CT DOSE (mGy.cm): The estimated cumulative dose is 990.44 mGy.cm. FINDINGS: Manager Spa topogram: Cholecystectomy clips. Lung bases: Normal heart size. No pericardial or pleural effusion. No focal infiltrate or nodule at the lung bases. Liver: Normal morphology. Subcentimeter mildly hypodense fairly well-defined lesion in the inferior right hepatic lobe, possibly hemangioma or cyst. Patent hepatic vasculature. Biliary: Mild biliary ductal prominence likely a reservoir effect in the post cholecystectomy state. Gallbladder surgically absent. Pancreas: Normal. Spleen: Normal. Adrenal glands: Normal. Kidneys and ureters: Normal. No hydronephrosis. Bladder: Incompletely evaluated secondary to underdistention. Pelvic organs: Uterus surgically absent. Normal left ovary. Right ovary not visualized. Bowel: Diverticulosis of the sigmoid and descending colon. The prior site of pericolonic fat infiltration along the mid to distal sigmoid has resolved. No colonic wall thickening. Scattered colonic diverticula also noted elsewhere. The appendix is normal. No bowel obstruction. Several duodenal diverticula at the level of the descending and horizontal portions. Trace sliding-type hiatal hernia. Peritoneal cavity: Trace free fluid in the pelvis, which appears to be free intraperitoneal fluid. No focal fluid collection to suggest abscess. No free intraperitoneal gas. Lymph nodes: No enlarged lymph nodes in the abdomen or pelvis. Vasculature: Atherosclerosis of the normal caliber abdominal aorta. IVC patent. Abdominal wall: Normal. Musculoskeletal: Normal. IMPRESSION: 1. Resolution of prior acute sigmoid diverticulitis. No current evidence of diverticulitis or a complication there of. 2. Diverticulosis coli. 3. No appendicitis. No acute intra-abdominal pathology. Electronically signed by: José Miguel Piedra M.D. 07/17/2019 10:36 AM Dictated: 07/17/19 1030 Transcribed: 07/17/19 1030 Supervising Physician Co-Signing Physician Notes I personally examined the patient and verified all coto points of history and exam, discussed case, and agree with decision making with Dr Carroll. Awoke in the middle of the night with abdominal pain and then black diarrhea. She has had progressive epigastric pain over the last while leading up to discharge. She is significantly higher in life stress than before. Vitals noted, in general she is awake and alert pleasant no distress. HEENT normal cephalic atraumatic mucous membranes moist. Breathing unlabored no accessory muscle use good effort. Skin shows no rashes no pallor or icterus. Abdomen shows epigastric tenderness without guarding rebound or rigidity, she also has some right mid abdominal tenderness as well. Diarrhea/melenathis coupled with her epigastric pain and high stress makes peptic ulcer disease the diagnosis of exclusion far greater than some other inf ectious enteritis. GI is seeing her and are planning an EGD in the morning. Acid suppression and supportive care until then. Otherwise as above. Fortunately she is quite hemodynamically stable. PG Care Time/CCT Total # of Minutes Spent Total Time Spent with Patient: Total time spent is greater than 50% in coordination of care (as documented) at patient's floor/unit and/or counseling patient: Resident Activity Tracking Resident Involvement: Resident Care Provided Care Provided: Adult Hospital Medicine (1) Abdominal pain Abdominal location: unspecified location Qualified Code(s): R10.9 - Unspecified abdominal pain
--- NOTE | 2019-07-17 16:43 | Emergency Department Note ---
Entered by Carolin Jordan acting as a scribe for Kvng Aguilera DO History of Present Illness General Chief complaint: Abdominal Pain Stated complaint: RT SIDED ABD/BACK PAIN, NAUSEA, DIARRHEA Source: patient History of Present Illness Onset (ago): week(s) 1 Location: abdomen (right) Pain Consistency: + constant Maximum Pain Intensity: 7 Current Pain Intensity: 7 Quality: + other (abdominal pain (sharp, burning)) Associated symptoms: + other (+back pain; +black/greenish stool; - urinary/vaginal symptoms ) The patient is a 49 year old female who presents to the Emergency Room with complaints of constant right sided abdominal pain beginning a week ago. The patient describes the pain as sharp and burning and as a 7/10. The patient notes she had diverticulitis about a month ago. The patient also notes of worsening back pain and 4 episodes of black stool beginning this morning. The patient notes her stool has been turning "greenish" recently. The patient states she has been trying heat and Advil to relieve symptoms, but she states it has not helped much. The patient denies urinary or vaginal symptoms. The patient notes she had a hysterectomy, one ovary and her gall bladder removed. The patient denies being on blood thinners. Home Medications Home Medications Medication Instructions Recorded Confirmed Type ascorbic acid (vitamin C) 500 mg 1,000 mg PO QAM tab 02/14/19 07/17/19 History chewable tablet topiramate 25 mg tablet 25 mg PO BID 04/12/19 07/17/19 History colestipol 1 gram tablet 2,000 g PO QAM #30 tab 05/01/19 07/17/19 History buspirone 5 mg tablet 5 mg PO TID PRN #90 tab 05/02/19 07/17/19 Rx cholecalciferol (vitamin D3) 1,000 1,000 units PO QDD 06/06/19 07/17/19 History unit capsule Advantage Probiotic Gummie 2 tab PO QAM 06/08/19 07/17/19 History [id number] 2 tab PO QAM 06/08/19 07/17/19 History [Alive Women's Gummy Vitamin] pantoprazole 40 mg tablet,delayed 40 mg PO BID #180 tab 06/08/19 07/17/19 Rx release ibuprofen [Advil] 200 mg PO Q6H PRN 07/17/19 07/17/19 History Allergies Allergy/AdvReac Type Severity Reaction Status Date / Time strawberry AdvReac Severe Anaphylaxis Verified 07/17/19 10:23 acetaminophen [From Percocet] AdvReac Mild Itchy Verified 07/17/19 10:23 oxycodone [From Percocet] AdvReac Mild Itchy Verified 07/17/19 10:23 Past Med/Surg History Medical History Fatigue (Acute) Elevated blood pressure reading (Acute) Diverticulosis of colon (Acute) Anxiety (Acute) Abnormal weight gain (Acute) GERD without esophagitis (Acute) Headache (Acute) Hyperlipidemia (Acute) Hypothyroidism, unspecified (Acute) Migraine (Acute) Obesity, unspecified (Acute) Status post tubal ligation (Acute) Headaches, cluster (Chronic) GERD (gastroesophageal reflux disease) (Chronic) IBS (irritable bowel syndrome) (Chronic) Surgical History Cholecystectomy planned (Resolved) History of hysterectomy (Resolved) Family History Aunt Migraines Breast cancer Mother Hypothyroidism Father Cardiac disorder Diabetes Grandfather Cardiac disorder Diabetes Grandfather Cardiac disorder Prostate cancer Social History Preferred Language: Grenadian Communication Ability: Effective Visual Impairment: No Limitations Hearing Ability: Normal Acquisition Marketing Manager Required: No marital status: Current Living Situation: Spouse current occupational status: employed 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 and A total of 10 systems reviewed and were otherwise negative Physical Exam Vital Signs Vital Signs - 24 hr 07/17/19 09:20 07/17/19 09:30 07/17/19 11:19 Temperature 36.7 C Temperature Source Oral Sepsis Recent Fever Within 48 Hours No Sepsis New/Unexplained Change in Mental Status No Sepsis Action Taken by Nursing No Action Required Pulse Rate 89 89 Pulse Rate [Right Finger] 82 Respiratory Rate 18 18 17 Respiratory Effort / Characteristics Non-Labored Spontaneous Respiratory Depth Normal Respiratory Pattern Regular Blood Pressure 155/96 H Blood Pressure [Left Arm] 134/73 Blood Pressure Mean 115 Blood Pressure Mean [Left Arm] 93 Blood Pressure Position Sitting Pulse Oximetry 97 97 100 Oxygen Delivery Method Room Air Room Air Room Air 07/17/19 13:15 07/17/19 15:20 Temperature Temperature Source Sepsis Recent Fever Within 48 Hours Sepsis New/Unexplained Change in Mental Status Sepsis Action Taken by Nursing Pulse Rate Pulse Rate [Right Finger] 82 74 Respiratory Rate 17 17 Respiratory Effort / Characteristics Respiratory Depth Respiratory Pattern Blood Pressure Blood Pressure [Left Arm] 145/87 H 149/83 H Blood Pressure Mean Blood Pressure Mean [Left Arm] 106 105 Blood Pressure Position Pulse Oximetry 100 98 Oxygen Delivery Method Room Air Room Air GENERAL: obese, disheveled, sitting in bed, non-toxic EYE EXAM: normal conjunctiva OROPHARYNX: no exudate, no erythema, lips, buccal mucosa, and tongue normal and mucous membranes are moist NECK: supple, no nuchal rigidity, no adenopathy, non-tender LUNGS: Clear to auscultation. Normal chest wall mechanics HEART: no murmurs, S1 normal and S2 normal ABDOMEN: abdomen soft, minimal tenderness in right lower quadrant, normo-active bowel sounds, no masses, no rebound or guarding. BACK: Back is symmetrical on inspection and there is no deformity, no midline t enderness, no CVA tenderness. SKIN: no rashes and no bruising UPPER EXTREMITIES: upper extremities are grossly normal. LOWER EXTREMITIES: No pitting edema. RECTAL: heme positive NEURO EXAM: Normal sensorium, cranial nerves II-XII grossly intact, normal speech, no gross weakness of arms, no gross weakness of legs. Course ED COURSE: Vital signs were reviewed and showed hypertensive. The patients medical record was reviewed The above diagnostic studies were performed and reviewed. ED treatments and interventions as stated above. 0951: The patient was evaluated in room C5. A complete history and physical examination was performed. 1220: I discussed the case with Dr. Lisbet Marino-. Dr. Frausto will evaluate the patient. 1420: I reviewed the patient's case with Dr. Benites-Hospitalist [facility]. Dr. Benites will evaluate the patient for further management. Based on the patients age, coexisting illnesses, exam and lab findings the decision to treat as an inpatient was made. The patient remained stable while under my care. The patient will be evaluated for further management. Consultations Consultation #1: I discussed the case with Dr. Lisbet Marino-GI. Dr. Frausto will evaluate the patient. Time: 12:20 Consultation #2: I reviewed the patient's case with Dr. Benites-Hospitalist [facility]. Dr. Benites will evaluate the patient for further management. Time: 14:20 Administered Medications Ioversol (Optiray 320 100ml) 95 ml IV ONCE PRN PRN Reason: Interaction Checking Stop: 07/21/19 10:20 Last Admin: 07/17/19 10:22 Dose: 95 ml Documented by: [id number] Discontinued Medications Sodium Chloride (Nss 1000ml) 2,000 mls @ 999 mls/hr IV .Q2H1M ONE Stop: 07/17/19 11:26 Last Infusion: 07/17/19 12:11 Dose: 0 mls/hr Documented by: [id number] Admin: 07/17/19 10:11 Dose: 999 mls/hr Documented by: [id number] Morphine Sulfate (Morphine Sulfate) 4 mg IV NOW STA Stop: 07/17/19 10:50 Last Admin: 07/17/19 11:18 Dose: 4 mg Documented by: [id number] Morphine Sulfate (Morphine Sulfate) 4 mg IV NOW STA Stop: 07/17/19 12:59 Last Admin: 07/17/19 13:11 Dose: 4 mg Documented by: [id number] Ondansetron HCl (Zofran) 4 mg IV NOW STA Stop: 07/17/19 09:58 Last Admin: 07/17/19 10:11 Dose: 4 mg Documented by: [id number] Ondansetron HCl (Zofran) 4 mg IV NOW STA Stop: 07/17/19 10:50 Last Admin: 07/17/19 11:19 Dose: 4 mg Documented by: [id number] Ondansetron HCl (Zofran) 4 mg IV NOW STA Stop: 07/17/19 12:59 Last Admin: 07/17/19 13:11 Dose: 4 mg Documented by: [id number] Medical Decision Making Differential Diagnosis Differential diagnoses includes but is not limited to gastritis, peptic ulcer disease, GERD, gallbladder disease, pancreatitis, small bowel obstruction, acute coronary syndrome, pericarditis, ischemic bowel, irritable bowel disease, irritable bowel syndrome, appendicitis, diverticulitis, malignancy, hernia, urinary tract infection, torsion, /ectopic (if female), perforation, trauma, infectious. Medical Records Attestation: I reviewed the patient's medical records. Home Medications Current Medication List: was personally reviewed by me Laboratory Data Attestation: I reviewed the patient's lab results. Result diagrams: 07/17/19 09:30 07/17/19 09:30 Lab Results 07/17/19 07/17/19 07/17/19 Range/Units 09:30 09:30 09:30 WBC 7.90 (4.8-10.8) K/uL RBC 5.02 (4.2-5.4) M/uL Hgb 13.9 (12.0-16.0) g/dL Hct 42.1 (37-47) % MCV 83.9 (80-100) fL MCH 27.7 (25-34) pg MCHC 33.0 (32-36) g/dL RDW Std Deviation 38.8 (36.4-46.3) fL RDW Coeff of Rowdy 12.9 (11.5-14.5) % Plt Count 214 (130-400) K/uL MPV 9.4 (7.4-10.4) fL Immature Gran % (Auto) 0.4 % Neut % (Auto) 66.8 % Lymph % (Auto) 25.2 % Grimes % (Auto) 6.5 % Eos % (Auto) 0.8 % Baso % (Auto) 0.3 % Immature Gran # (Auto) 0.03 H (0.00-0.02) K/uL Neut # (Auto) 5.29 (1.4-6.5) K/uL Lymph # (Auto) 1.99 (1.2-3.4) K/uL Grimes # (Auto) 0.51 (0.11-0.59) K/uL Eos # (Auto) 0.06 (0-0.5) K/uL Baso # (Auto) 0.02 (0-0.2) K/uL Sodium 140 (136-145) mmol/L Potassium 3.8 (3.5-5.1) mmol/L Chloride 107 (98-107) mmol/L Carbon Dioxide 24 (21-32) mmol/L Anion Gap 8.0 (3-11) BUN 17 (7-18) mg/dl Creatinine 1.06 (0.6-1.2) mg/dl Est Cr Clr Drug Dosing 73.8 ml/min Est GFR ( Amer) 71.9 Est GFR (Non-Af Amer) 62.0 BUN/Creatinine Ratio 16.3 (10-20) Glucose 88 (70-99) mg/dl Calcium 9.0 (8.5-10.1) mg/dl Total Bilirubin 0.3 (0.2-1) mg/dl AST 15 (15-37) U/L ALT 23 (12-78) U/L Alkaline Phosphatase 119 H (45-117) U/L Total Protein 7.3 (6.4-8.2) gm/dl Albumin 3.6 (3.4-5.0) gm/dl Globulin 3.7 (2.5-4.0) gm/dl Albumin/Globulin Ratio 1.0 (0.9-2) Lipase 213 (73-393) U/L HCG, Qual Negative (Negative) Urine Color Urine Appearance (Clear) Urine pH (4.5-7.5) Ur Specific Concordia (1.000-1.030) Urine Protein (Negative) Urine Glucose (UA) (Negative) Urine Ketones (Negative) Urine Blood (Negative) Urine Nitrite (Negative) Urine Bilirubin (Negative) Urine Urobilinogen (Negative) Ur Leukocyte Esterase (Negative) Urine WBC (Auto) (0-5) /hpf Urine RBC (Auto) (0-4) /hpf U Hyaline Cast (Auto) (0-5) /lpf U Epithel Cells (Auto) (0-5) /lpf Urine Bacteria (Auto) (Negative) Urine Mucus (None Prsent) 07/17/19 Range/Units 10:11 WBC (4.8-10.8) K/uL RBC (4.2-5.4) M/uL Hgb (12.0-16.0) g/dL Hct (37-47) % MCV (80-100) fL MCH (25-34) pg MCHC (32-36) g/dL RDW Std Deviation (36.4-46.3) fL RDW Coeff of Rowdy (11.5-14.5) % Plt Count (130-400) K/uL MPV (7.4-10.4) fL Immature Gran % (Auto) % Neut % (Auto) % Lymph % (Auto) % Grimes % (Auto) % Eos % (Auto) % Baso % (Auto) % Immature Gran # (Auto) (0.00-0.02) K/uL Neut # (Auto) (1.4-6.5) K/uL Lymph # (Auto) (1.2-3.4) K/uL Grimes # (Auto) (0.11-0.59) K/uL Eos # (Auto) (0-0.5) K/uL Baso # (Auto) (0-0.2) K/uL Sodium (136-145) mmol/L Potassium (3.5-5.1) mmol/L Chloride (98-107) mmol/L Carbon Dioxide (21-32) mmol/L Anion Gap (3-11) BUN (7-18) mg/dl Creatinine (0.6-1.2) mg/dl Est Cr Clr Drug Dosing ml/min Est GFR ( Amer) Est GFR (Non-Af Amer) BUN/Creatinine Ratio (10-20) Glucose (70-99) mg/dl Calcium (8.5-10.1) mg/dl Total Bilirubin (0.2-1) mg/dl AST (15-37) U/L ALT (12-78) U/L Alkaline Phosphatase (45-117) U/L Total Protein (6.4-8.2) gm/dl Albumin (3.4-5.0) gm/dl Globulin (2.5-4.0) gm/dl Albumin/Globulin Ratio (0.9-2) Lipase (73-393) U/L HCG, Qual (Negative) Urine Color Yellow Urine Appearance Cloudy A (Clear) Urine pH 6.0 (4.5-7.5) Ur Specific Concord[place] 1.021 (1.000-1.030) Urine Protein Negative (Negative) Urine Glucose (UA) Negative (Negative) Urine Ketones Negative (Negative) Urine Blood Negative (Negative) Urine Nitrite Negative (Negative) Urine Bilirubin Negative (Negative) Urine Urobilinogen Negative (Negative) Ur Leukocyte Esterase Negative (Negative) Urine WBC (Auto) 1-5 (0-5) /hpf Urine RBC (Auto) 0-4 (0-4) /hpf U Hyaline Cast (Auto) 1-5 (0-5) /lpf U Epithel Cells (Auto) >30 H (0-5) /lpf Urine Bacteria (Auto) 1+ H (Negative) Urine Mucus Present A (None Prsent) Imaging Data Radiologist's Impression: Radiology results as stated below per my review and the radiologist's interpretation: CT abd pelvis IV con only CLINICAL HISTORY: 49 years-old Female presenting with right lower quadrant abdominal pain. TECHNIQUE: Multidetector CT of the abdomen and pelvis was performed after the administration of intravenous contrast. IV contrast: 95 mL of Optiray 320. One or more dose lowering techniques were used consistent with the principles of ALARA (as low as reasonably achievable), including automatic exposure control, mA or kV adjustment to individual patient size, and/or use of iterative reconstruction. COMPARISON: 06/08/2019. CT DOSE (mGy.cm): The estimated cumulative dose is 990.44 mGy.cm. FINDINGS: Public Health Inspector topogram: Cholecystectomy clips. Lung bases: Normal heart size. No pericardial or pleural effusion. No focal infiltrate or nodule at the lung bases. Liver: Normal morphology. Subcentimeter mildly hypodense fairly well-defined lesion in the inferior right hepatic lobe, possibly hemangioma or cyst. Patent hepatic vasculature. Biliary: Mild biliary ductal prominence likely a reservoir effect in the post cholecystectomy state. Gallbladder surgically absent. Pancreas: Normal. Spleen: Normal. Adrenal glands: Normal. Kidneys and ureters: Normal. No hydronephrosis. Bladder: Incompletely evaluated secondary to underdistention. Pelvic organs: Uterus surgically absent. Normal left ovary. Right ovary not visualized. Bowel: Diverticulosis of the sigmoid and descending colon. The prior site of pericolonic fat infiltration along the mid to distal sigmoid has resolved. No colonic wall thickening. Scattered colonic diverticula also noted elsewhere. The appendix is normal. No bowel obstruction. Several duodenal diverticula at the level of the descending and horizontal portions. Trace sliding-type hiatal hernia. Peritoneal cavity: Trace free fluid in the pelvis, which appears to be free intraperitoneal fluid. No focal fluid collection to suggest abscess. No free intraperitoneal gas. Lymph nodes: No enlarged lymph nodes in the abdomen or pelvis. Vasculature: Atherosclerosis of the normal caliber abdominal aorta. IVC patent. Abdominal wall: Normal. Musculoskeletal: Normal. IMPRESSION: 1. Resolution of prior acute sigmoid diverticulitis. No current evidence of diverticulitis or a complication there of. 2. Diverticulosis coli. 3. No appendicitis. No acute intra-abdominal pathology. Electronically signed by: José Miguel Piedra M.D. 07/17/2019 10:36 AM Blood Pressure Blood Pressure Findings: Elevated blood pressure Blood Pressure Disposition: Referred to patients primary care provider ABELINO Narrative Patient is a 49-year-old female who presents the ER for right lower quadrant abdominal pain which has been present for the past week. She was seen here previously and treated for diverticulitis within the past month. IV was established blood work was obtained. Labs show no significant leukocytosis or anemia. BMP along with LFTs bilirubin and lipase is unremarkable. Beta hCG was negative. UA was contaminated with multiple epithelial cells. CT abdomen pelvis shows no acute pathology. Her abdominal exam was fairly benign. Rectal was heme positive. She was given IV fluids. No elevation in BUN. No drop in hemoglobin. Consult GI who evaluated her. They recommended admission and scope. Discussed with hospitalist. Patient was updated bedside. Patient was admitted for further work-up. Impression & Plan Abdominal pain, Acute GI bleeding Discharge Plan Visit Data Chief Complaint: Abdominal Pain Stated Complaint: RT SIDED ABD/BACK PAIN, NAUSEA, DIARRHEA ED Provider: Kvng Aguilera Discharge Problem: Abdominal pain, Acute GI bleeding Patient Disposition: Being Evaluated by Hospitalist Discharge Instructions Maura/Other Patient Handouts: Abd Pain Activity Restrictions/Additional Instructions: Please follow up with your primary care doctor with in the next 24 hours. Any worsening of your symptoms, please return to the ED immediately. This includes any fevers greater than 100.4, worsening pain, chest pain, shortness breath, persistent nausea, vomiting, unable to eat or drink, or any other concerning signs or symptoms from your standpoint. You were given medications during this visit that will inhibit your ability to drive, operate machinery and work. Please do NOT drive, operate machinery, drink alcohol or work for the next 12hrs. You were found to have a blood pressure greater than 120 systolic over 90 diastolic. Due to the new Medicare guidelines, we are now recommending that you follow up with your primary care doctor in regards to this elevated blood pressure. Forms Stand Alone Forms: Call Back Authorization, [employer] Prescriptions Prescriptions: No Action ascorbic acid (vitamin C) 500 mg tablet,chewable 1,000 mg PO QAM RF: 0 buspirone 5 mg tablet 5 mg PO TID PRN (Reason: anxiety) Qty: 90 RF: 2 pantoprazole [Protonix] 40 mg tablet,delayed release (DR/EC) 40 mg PO BID Qty: 180 RF: 0 colestipol 1 gram tablet 2,000 g PO QAM Qty: 30 RF: 0 topiramate [Topamax] 25 mg tablet 25 mg PO BID RF: 0 cholecalciferol (vitamin D3) 1,000 unit capsule 1,000 units PO QDD RF: 0 ibuprofen [Advil] 200 mg Tablet 200 mg PO Q6H PRN (Reason: Pain) RF: 0 Advantage Probiotic Gummie 2 tab PO QAM RF: 0 Alive Women's Gummy Vitamin 200 mcg- 37.5 mg Tablet,Chewable 2 tab PO QAM RF: 0 Referrals Referrals: José Miguel Apple MD [Primary Care Provider] - Discharge Problem: Abdominal pain Qualifiers: Abdominal location: unspecified location Qualified Code(s): R10.9 - Unspecified abdominal pain The scribe's documentation has been prepared under my direction and personally reviewed by me in its entirety. I confirm that the note above accurately reflects all work, treatment, procedures, and medical decision making performed by me.
[2019-07-17] MEDS ORDERED: POLYETHYLENE (MIRALAX) 17 GM PACK PO PRN (19:03)
[2019-07-17] MEDS ORDERED: ACETAMINOPHEN 325 MG TAB PO PRN (19:03)
[2019-07-17] MEDS: SODIUM CHLORIDE 0.9% 1000ML 1,000 ML IV SCH (19:42)
[2019-07-17] MEDS: FAMOTIDINE 20MG/5ML IV PUSH IV STA ×2 (19:43→20:01)
[2019-07-17] MEDS ORDERED: PANTOprazole 40 MG TAB PO SCH (21:00)
[2019-07-17] MEDS: PANTOprazole 40 MG TAB PO SCH (21:16)
[2019-07-17] MEDS: TOPIRAMATE 25 MG TAB PO SCH (21:16)
[2019-07-18] MEDS: ONDANSETRON INJ 2 MG/ML 2 ML VIAL IV PRN ×2 (03:19→07:52)
[2019-07-18] MEDS: SODIUM CHLORIDE 0.9% 1000ML 1,000 ML IV SCH ×2 (03:21→11:03)
[2019-07-18] MEDS ORDERED: ACETAMINOPHEN 1,000 MG/100 ML VIAL IV STA ×2 (03:36→08:48)
[2019-07-18] MEDS ORDERED: PROMETHAZINE HCL 12.5 MG in SODIUM CHLORIDE 0.9% 50 ML IV PRN (03:36)
[2019-07-18 07:13] LABS: Basophils # (auto) 0.03 K/uL (0-0.2); Basophils % (auto) 0.5 %; Eosinophils # (auto) 0.12 K/uL (0-0.5); Hematocrit (blood only) 36.7 % (37-47); Hemoglobin 12.1 g/dL (12.0-16.0); Immature Granulocytes # (auto) 0.02 K/uL (0.00-0.02); Immature Granulocytes % (auto) 0.3 %; Lymphocytes # (auto) 1.78 K/uL (1.2-3.4); Lymphocytes % (auto) 29.2 %; Mean Corpuscular Hemoglobin 27.9 pg (25-34); Mean Corpuscular Volume 84.8 fL (80-100); Mean Platelet Volume 9.4 fL (7.4-10.4); Monocytes # (auto) 0.49 K/uL (0.11-0.59); Neutrophils # (auto) 3.66 K/uL (1.4-6.5); Platelet Count 175 K/uL (130-400); RDW Coefficient of Variation 13.1 % (11.5-14.5); RDW Standard Deviation 40.3 fL (36.4-46.3); Red Blood Count 4.33 M/uL (4.2-5.4)
[2019-07-18] MEDS: PANTOprazole 40 MG TAB PO SCH ×2 (07:30→13:31)
[2019-07-18] MEDS: FAMOTIDINE 20 MG TAB PO SCH ×2 (07:30→13:31)
[2019-07-18] MEDS: TOPIRAMATE 25 MG TAB PO SCH ×2 (07:30→13:31)
[2019-07-18 07:32] LABS: BUN Creatinine Ratio 9.1 (10-20); Creatinine Clr Calc Pharmacy 84.2 ml/min; Est GFR (African American) 84.2; Est GFR (Non-African American) 72.7; Potassium 3.9 mmol/L (3.5-5.1)
--- NOTE | 2019-07-18 08:31 | Medical Student Progress Note ---
Date of Service July 18, 2019 Subjective Pt is 49yo female with pmhx of GERD, IBS, anxiety, migraines, and recurrent history of diverticulitis who presented to ED 07/17 with epigastric abdominal pain and melenic diarrhea that was heme positive. This morning, she states that she is tired due to nausea that started at 3AM after she went to the bathroom. Nausea worsens with positional changes and makes her feel "dizzy" and "sick to her stomach". She is still having epigastric abdominal pain with radiation to her RLQ, but it has improved to a 5/10. It is still a dull and uncomfortable pain. She endorses a headache which she has since her admission. She was given Zofranx2 with transient relief and Tylenolx1. She's had no bowel movement since her initial episode yesterday morning. Abdominal pain, diarrhea, heme positive stool - scheduled for upper EGD with today - NPO - Zofran and tylenol PRN - Continue pantoprazole and famotidine Nausea - Zofran PRN Ongoing - GERD - anxiety - migraines - HLD Review of Systems Constitutional: + fatigue; no fever and no chills Respiratory: no cough and no dyspnea Cardiovascular: no chest pain and no palpitations Gastrointestinal: + abdominal pain (epigastric); no vomiting Genitourinary: no dysuria and no urinary frequency Neurologic: + headache(s) Physical Exam Constitutional: cooperative Eyes: EOM intact bilaterally; no nystagmus Respiratory: Auscultation: lungs clear to auscultation bilaterally; no crackles, no rales and no wheezes Cardiovascular: Rate/Rhythm: regular rate and regular rhythm Heart Sounds: no gallop, no murmur and no cardiac rub Gastrointestinal (Abdomen): Inspection/Auscultation: abdomen normal to inspection Percussion/Palpation: + abdomen tender (epigastric); no guarding and abdomen not rigid Musculoskeletal: Extremities: strength 5/5 throughout Results & Data Vital Signs (Past 12 Hours) Vital Signs Temp Pulse Resp BP Pulse Ox 07/18/19 07:33 36.6 C 79 18 118/80 96 07/18/19 04:00 36.6 C 77 18 128/76 98 07/17/19 23:09 36.6 C 65 18 119/79 99 Laboratory Results Laboratory Results - last 24 hr 07/18/19 07/18/19 06:29 06:29 WBC 6.10 RBC 4.33 Hgb 12.1 Hct 36.7 L MCV 84.8 MCH 27.9 MCHC 33.0 RDW Std Deviation 40.3 RDW Coeff of Rowdy 13.1 Plt Count 175 MPV 9.4 Immature Gran % (Auto) 0.3 Neut % (Auto) 60.0 Lymph % (Auto) 29.2 Howard % (Auto) 8.0 Eos % (Auto) 2.0 Baso % (Auto) 0.5 Immature Gran # (Auto) 0.02 Neut # (Auto) 3.66 Lymph # (Auto) 1.78 Howard # (Auto) 0.49 Eos # (Auto) 0.12 Baso # (Auto) 0.03 Sodium 142 Potassium 3.9 Chloride 112 H Carbon Dioxide 24 Anion Gap 6.0 BUN 8 D Creatinine 0.93 Est Cr Clr Drug Dosing 84.2 Est GFR ( Amer) 84.2 Est GFR (Non-Af Amer) 72.7 BUN/Creatinine Ratio 9.1 L Glucose 83 Calcium 8.0 L Medications Administered Current Inpatient Medications Acetaminophen (Tylenol) 650 mg PO Q4H PRN PRN Reason: Pain or Fever Stop: 08/16/19 19:02 Atropine Sulfate (Atropine Sulfate) 0.5 mg IV Q1M PRN PRN Reason: PACU Use-HR<40 &/or Bradycardi Stop: 07/18/19 17:21 Buspirone HCl (Buspar) 5 mg PO TID PRN PRN Reason: anxiety Stop: 08/16/19 19:02 Dicyclomine HCl (Bentyl) 10 mg PO TID PRN PRN Reason: pain Stop: 08/16/19 20:59 Diphenhydramine HCl (Benadryl Capsule) 25 mg PO HS PRN PRN Reason: Insomnia Stop: 08/16/19 20:24 Last Admin: 07/17/19 21:16 Dose: 25 mg Documented by: Ephedrine Sulfate (Ephedrine Sulfate) 5 mg IV Q5M PRN PRN Reason: PACU Use Only-SBP<90 mmHg Stop: 07/18/19 17:21 Famotidine (Pepcid) 20 mg PO BID AILYN Stop: 08/17/19 08:59 Last Admin: 07/18/19 07:30 Dose: Not Given Documented by: Hyoscyamine (Levsin) 0.125 mg PO BID [facility] Stop: 08/17/19 20:59 Sodium Chloride (Nss 1000ml) 1,000 mls @ 125 mls/hr IV .Q8H AILYN Stop: 08/16/19 19:02 Last Admin: 07/18/19 11:03 Dose: 125 mls/hr Documented by: Promethazine HCl 12.5 mg/ (Sodium Chloride) 50.5 mls @ 202 mls/hr IV Q6H PRN PRN Reason: Nausea And Vomiting Stop: 08/17/19 03:35 Ondansetron HCl (Zofran) 4 mg IV Q6H PRN PRN Reason: Nausea Stop: 08/16/19 19:02 Last Admin: 07/18/19 07:52 Dose: 4 mg Documented by: Pantoprazole Sodium (Protonix) 40 mg PO BID [facility] Stop: 08/16/19 20:59 Last Admin: 07/18/19 07:30 Dose: Not Given Documented by: Polyethylene Glycol (Miralax Powder Packet) 17 gm PO DAILY PRN PRN Reason: Constipation Stop: 08/16/19 19:02 Topiramate (Topamax) 25 mg PO BID [facility] Stop: 08/16/19 20:59 Last Admin: 07/18/19 07:30 Dose: Not Given Documented by:
--- NOTE | 2019-07-18 11:28 | History & Physical Bridge Note ---
Date of Service July 18, 2019 History & Physical Bridge Note I have examined the patient, reviewed the History & Physical and in the interval since the performance of the History & Physical I have noted the following changes of clinical significance: no changes noted. Pt still c/o upper abd pain and nausea. Denies any more BMs since admitted. She had been NPO for EGD today. VS, labs reviewed Exam: - AAOx3 in NAD - CTA bilateral lungs - HRR no murmur or gallops - Abd soft, TTP epigastric - No edema on extremities GI will give further recs after EGD is performed. I saw and evaluated the patient. We are planning for upper endoscopy today. We have discussed the risks of the procedure to include bleeding, infection, perforation and need for follow-up studies.
--- NOTE | 2019-07-18 12:20 | Anesthesiology Consultation ---
Date of Service July 18, 2019 Assessment & Plan Chart Review Chart Review: Acceptable Risk for Surgery and Patient NOT seen in Pre Admission Testing Consults Requested none ASA ASA3 Proposed Anesthesia Anesthesia Type: MAC Risk / Benefits Reviewed With: PT / POA / Parent / Guardian, Accepts Plan and Informed Consent Obtained History Surgery Operation Date: 07/18/19 09:55 Proposed Procedures p Esophagogastroduodenoscopy Dr Duy Gordillo Height/Weight Height: 5 ft 3 in Weight: 101.7 kg Allergies Allergy/AdvReac Type Severity Reaction Status Date / Time strawberry AdvReac Severe Anaphylaxis Verified 07/17/19 10:23 acetaminophen [From Percocet] AdvReac Mild Itchy Verified 07/17/19 10:23 oxycodone [From Percocet] AdvReac Mild Itchy Verified 07/17/19 10:23 Medications Home Medications Medication Instructions Recorded Confirmed Last Taken ascorbic acid (vitamin C) 500 mg 1,000 mg PO QAM tab 02/14/19 07/17/19 07/16/19 chewable tablet topiramate 25 mg tablet 25 mg PO BID 04/12/19 07/17/19 07/17/19 07:00 colestipol 1 gram tablet 2,000 g PO QAM #30 tab 05/01/19 07/17/19 06/07/19 1000mg buspirone 5 mg tablet 5 mg PO TID PRN #90 tab 05/02/19 07/17/19 Unknown cholecalciferol (vitamin D3) 1,000 1,000 units PO QDD 06/06/19 07/17/19 07/16/19 unit capsule Advantage Probiotic Gummie 2 tab PO QAM 06/08/19 07/17/19 07/17/19 07:00 [id number] 2 tab PO QAM 06/08/19 07/17/19 07/16/19 [Alive Women's Gummy Vitamin] pantoprazole 40 mg tablet,delayed 40 mg PO BID #180 tab 06/08/19 07/17/19 07/17/19 07:00 release ibuprofen [Advil] 200 mg PO Q6H PRN 07/17/19 07/17/19 07/17/19 07:00 600mg Active Medications Generic Name Dose Route Start Last Admin Trade Name Freq PRN Reason Stop Dose Admin Diphenhydramine HCl 25 mg 07/17/19 20:25 07/17/19 21:16 Benadryl Capsule PO 08/16/19 20:24 25 mg HS PRN Administration Insomnia Famotidine 20 mg 07/18/19 09:00 07/18/19 07:30 Pepcid PO 08/17/19 08:59 Not Given BID AILYN Sodium Chloride 1,000 mls @ 125 mls/hr 07/17/19 19:03 07/18/19 11:03 Nss 1000ml IV 08/16/19 19:02 125 mls/hr .Q8H AILYN Administration Ondansetron HCl 4 mg 07/17/19 19:03 07/18/19 07:52 Zofran IV 08/16/19 19:02 4 mg Q6H PRN Administration Nausea Pantoprazole Sodium 40 mg 07/17/19 21:00 07/18/19 07:30 Protonix PO 08/16/19 20:59 Not Given BID AILYN Topiramate 25 mg 07/17/19 21:00 07/18/19 07:30 Topamax PO 08/16/19 20:59 Not Given BID AILYN NPO Date Last Intake of Fluids: 07/17/19 Time Last Intake of Fluids: 18:30 Date Last Intake of Solids: 07/16/19 Time Last Intake of Solids: 19:00 Past Medical History Medical History Fatigue (Acute) Elevated blood pressure reading (Acute) Diverticulosis of colon (Acute) Anxiety (Acute) Abnormal weight gain (Acute) GERD without esophagitis (Acute) Headache (Acute) Hyperlipidemia (Acute) Hypothyroidism, unspecified (Acute) Migraine (Acute) Obesity, unspecified (Acute) Status post tubal ligation (Acute) Headaches, cluster (Chronic) GERD (gastroesophageal reflux disease) (Chronic) IBS (irritable bowel syndrome) (Chronic) Exercise / Class Metabolic Activity III < 4 Walking/Shop/Light housework Past Family History Family History Aunt Migraines Breast cancer Mother Hypothyroidism Father Cardiac disorder Diabetes Grandfather Cardiac disorder Diabetes Grandfather Cardiac disorder Prostate cancer Past Surgical History Surgical History Cholecystectomy planned (Resolved) History of hysterectomy (Resolved) Past Anesthesia History No Hx of Anesthesia Complications and No Family Hx of Anesthesia Complications History of PONV No Hx of PONV and No Hx of Motion Sickness Social History Smoking Status: Never smoker Do You Dip or Chew Tobacco: No Hx Alcohol Use: Yes Alcohol type: wine alcohol intake frequency: holidays/special occasions only Hx Substance Use: No substance use type: does not use Physical Exam Vital Signs Last Vital Signs Temp 36.6 C 07/18/19 12:06 Pulse 89 07/18/19 12:06 Resp 20 07/18/19 12:06 BP 142/76 H 07/18/19 12:06 Pulse Ox 98 07/18/19 12:06 Constitutional + morbidly obese ENMT Mouth: no dentition abnormality Thyromental Distance: > or= 3.5 Finger Breadths Mallampati Class: II Neck normal visual inspection and trachea midline; neck extension not limited Respiratory normal respiratory effort Auscultation: lungs clear to auscultation bilaterally Cardiovascular Rate/Rhythm: regular rate and regular rhythm Heart Sounds: no murmur Musculoskeletal Spine: normal cervical ROM Neurologic moves all extremities Motor/Sensory: no sensory deficit Psychiatric Orientation: alert and oriented x 3 Testing Laboratory Results 07/18/19 06:29 07/18/19 06:29 Urine Color Yellow 07/17/19 10:11 Urine Appearance Cloudy (Clear) A 07/17/19 10:11 Urine pH 6.0 (4.5-7.5) 07/17/19 10:11 Ur Specific Cadet 1.021 (1.000-1.030) 07/17/19 10:11 Urine Protein Negative (Negative) 07/17/19 10:11 Urine Glucose (UA) Negative (Negative) 07/17/19 10:11 Urine Ketones Negative (Negative) 07/17/19 10:11 Urine Nitrite Negative (Negative) 07/17/19 10:11 Ur Leukocyte Esterase Negative (Negative) 07/17/19 10:11 Urine WBC (Auto) 1-5 /hpf (0-5) 07/17/19 10:11 Urine RBC (Auto) 0-4 /hpf (0-4) 07/17/19 10:11 U Hyaline Cast (Auto) 1-5 /lpf (0-5) 07/17/19 10:11 U Epithel Cells (Auto) >30 /lpf (0-5) H 07/17/19 10:11 Urine Bacteria (Auto) 1+ (Negative) H 07/17/19 10:11 07/17/19 10:11 Urine Culture - Final Urine,Clean Catch Three types or organisms present, all moderate counts probable skin renu. No further identifications or sensitivities to follow.
[2019-07-18] MEDS ORDERED: ePHEDrine sulfate 50 MG/ML AMP IV PRN (12:21)
[2019-07-18] MEDS ORDERED: ATROPINE SULFATE 0.1 MG/ML 10ML SYR IV PRN (12:21)
--- NOTE | 2019-07-18 12:41 | GI REPORT ---
Patient Name: Gudelia Bolden Procedure Date: 07/18/2019 11:53 AM Date of : 1970 Admit Type: Inpatient Age: 49 Gender: Female Attending MD: Lorrie Gordillo DO Procedure: Upper GI endoscopy Providers: Lorrie Gordillo DO Referring MD: Kvng Benitse Indications: Epigastric abdominal pain Medicines: Monitored Anesthesia Care Complications: No immediate complications. Estimated blood loss: Minimal. Estimated Blood Loss: Estimated blood loss was minimal. Procedure: Pre-Anesthesia Assessment: - Prior to the procedure, a History and Physical was performed, and patient medications, allergies and sensitivities were reviewed. The patient's tolerance of previous anesthesia was reviewed. - The risks and benefits of the procedure and the sedation options and risks were discussed with the patient. All questions were answered and informed consent was obtained. - Patient identification and proposed procedure were verified prior to the procedure by the physician, the nurse and the air gun operator. The procedure was verified in the procedure room. - Pre-procedure physical examination revealed no contraindications to sedation. - ASA Grade Assessment: III - A patient with severe systemic disease. - After reviewing the risks and benefits, the patient was deemed in satisfactory condition to undergo the procedure. - The anesthesia plan was to use monitored anesthesia care (MAC). - Immediately prior to administration of medications, the patient was re-assessed for adequacy to receive sedatives. - The heart rate, respiratory rate, oxygen saturations, blood pressure, adequacy of pulmonary ventilation, and response to care were monitored throughout the procedure. - The physical status of the patient was re-assessed after the procedure. After obtaining informed consent, the endoscope was passed under direct vision. Throughout the procedure, the patient's blood pressure, pulse, and oxygen saturations were monitored continuously. The Endoscope was introduced through the mouth, and advanced to the third part of duodenum. The upper GI endoscopy was accomplished without difficulty. The patient tolerated the procedure well. Findings: The examined esophagus was normal. A small hiatal hernia was found. The proximal extent of the gastric folds (end of tubular esophagus) was 35 cm from the incisors. The hiatal narrowing was 36 cm from the incisors. The Z-line was 35 cm from the incisors. Diffuse mild inflammation characterized by erythema and granularity was found in the entire examined stomach. Biopsies were taken with a cold forceps for histology. Estimated blood loss was minimal. The pathology specimen was placed into Bottle B. Estimated blood loss was minimal. The examined duodenum was normal. Biopsies were taken with a cold forceps for histology. The pathology specimen was placed into Bottle A. Estimated blood loss was minimal. Impression: - Normal esophagus. - Small hiatal hernia. - Gastritis. Biopsied. - Normal examined duodenum. Biopsied. Recommendation: - Return patient to [facility] for [facility] care. - Advance diet as tolerated today. - Perform a colonoscopy at appointment to be scheduled (may be done as an Outpatient). Lorrie Gordillo D.O. Lorrie Gordillo, 07/18/2019 12:41:01 PM This report has been signed electronically. Note Initiated On: 07/18/2019 11:53 AM Number of Addenda: 0 I attest to the content of the Intraoperative Record and orders documented therein, exceptions below {[id number]}
--- NOTE | 2019-07-18 12:53 | Communication Note ---
Date of Service: July 18, 2019 The patient underwent upper endoscopy this afternoon. Findings Small hiatal hernia Mild gastritis Impression: Upper endoscopy findings not likely contributing to her discomfort. I would suggest obtaining C. difficile if her diarrhea returns. Otherwise we would recommend outpatient colonoscopy in the next 4 to 6 weeks. In the meantime I would suggest starting Levsin twice daily to see if this helps with her abdominal discomfort. I suspect that her symptoms may be related to irritable bowel syndrome. I would recommend a repeat colonoscopy as she did have heme positive stools. We are delaying the colonoscopy for several weeeks due to the recent history of diverticulitis.
--- NOTE | 2019-07-18 12:55 | Anesthesiology Progress Note ---
Date of Service July 18, 2019 Anesthesia Post Procedure Vital Signs Vital Signs: Temp Pulse Pulse Resp BP BP Pulse Ox 07/18/19 12:37 70 16 117/68 94 07/18/19 12:06 36.6 C 89 20 142/76 H 98 07/18/19 11:30 36.8 C 106 H 20 138/82 99 07/18/19 07:33 36.6 C 79 18 118/80 96 07/18/19 04:00 36.6 C 77 18 128/76 98 07/17/19 23:09 36.6 C 65 18 119/79 99 07/17/19 19:39 36.7 C 58 L 18 120/80 97 07/17/19 16:42 73 19 137/84 99 07/17/19 15:20 74 17 149/83 H 98 07/17/19 13:15 82 17 145/87 H 100 Pain Intensity Abdomen: Pain Intensity: 5 Transfer of Care Handoff Completed per policy Notes Mental Status: alert / awake / arousable Patient Amnestic to Procedure: Yes Nausea / Vomiting: adequately controlled Pain: adequately controlled Airway Patency, RR, SpO2: stable & adequate BP & HR: stable & adequate Hydration State: stable & adequate Anesthetic Complications: no major complications apparent
--- NOTE | 2019-07-18 17:11 | Med Student Discharge Summary ---
Date of Service July 18, 2019 Admission HPI Per Admitting Provider 49-year-old female with IBS, GERD, migraine headaches, anxiety and recent history of diverticulitis presents after 1 day of significant epigastric pain and melanotic stools. She states that the abdominal pain became severe this afternoon and was radiating into her back. She stated that the pain also migrated into the right lower quadrant. Patient was recently treated for diverticulitis in June. She has a past medical history of diverticulosis diagnosed on a colonoscopy in 2015. She states that she began to have chronic abdominal symptoms around that time 2015. She has had extensive work-ups over the past with ultimately a diagnosis of IBS and GERD. She believes that her symptoms are aggravated by stressshe describes an increase of stress over the summer which correlates with worsening IBS symptoms. She has a history of diarrhea and constipation, but recently has been on antibiotics for diverticulitis and has had predominantly loose stools. She has not seen sidra blood in her stools. She did take ibuprofen this morning which did not help with the pain. She does not take NSAIDs on a regular basis. The patient is not on a blood thinner. She denies a family history of IBD or colon cancer. Review of systems Constitutional; patient denies fevers, chills CV; denies chest pain Pulmonary; denies shortness of breath Abdomen; abdominal pain, nausea/diarrhea as described above Admission Exam (Per Admitting) Constitutional WD/WN, vitals as above + morbidly obese, well groomed, cooperative and comfortable Eyes PERRL, conjunctivae normal, anicteric sclerae ENMT external ear and nose normal, oropharynx normal Mouth: no dentition abnormality Mallampati Class: II Neck trachea midline, no thyromegaly normal visual inspection and trachea midline; neck extension not limited Respiratory normal respiratory effort, lungs clear to auscultation normal respiratory effort Auscultation: lungs clear to auscultation bilaterally Cardiovascular RRR, no murmur, no edema Rate/Rhythm: regular rate and regular rhythm Heart Sounds: no murmur Gastrointestinal (Abdomen) normal bowel sounds, soft, nontender, no hepatosplenomegaly Inspection/Auscultation: normal bowel sounds Percussion/Palpation: + abdomen tender (mid abd area ) and abdomen soft Musculoskeletal no cyanosis or clubbing, extremities motor strength 5/5 Spine: normal cervical ROM Skin no rashes, warm and dry no jaundice Neurologic PERRL, EOMI, accommodation nl, no face palsy, no dysarthria moves all extremities Motor/Sensory: no asterixis and no sensory deficit Psychiatric A+Ox3, euthymic affect Orientation: alert and oriented x 3 Lymphatic no lymphedema Discharge Data Consultations 07/17/19 13:44 Consult Gastroenterology Stat 07/17/19 14:05 ED Decision to Admit Stat 07/17/19 19:03 Consult Gastroenterology Routine Procedures Performed Operation Date: 07/18/19 09:55 Actual Procedures p EGD Biopsy Cytology - [facility] (1) Heme positive stool: 49-year-old female with history of GERD, IBS, migraines, anxiety and recent history of diverticulitis who presented with epigastric abdominal pain and melenic diarrhea that was found to be heme positive. CT abd/pelv showed resolution of prior sigmoid diverticulitis and was otherwise normal. Hemoglobin never below 12.1, did not require transfusions. Labs otherwise unremarkable. Remained normotensive and afebrile while here. C diff pending, but low suspicion for this. Stool culture also pending. Patient was kept NPO, and treated empirically with addition of famotidine 20mg on top of her pantoprazole 40mg BID. GI was consulted and upper EGD was performed that showed gastritis, biopsies taken and pending. Patient denies use of NSAIDs or alcohol and was advised to abstain from both. Patient endorses chronic stressors that have been worse within the last few months, which may be the most likely etiology of her gastritis. Discussed with patient the need for ongoing acid suppression and stress management, goal of symptom-free for a total of 8 weeks prior to beginning a taper of PPI if indicated, per primary care provider. Pt also coincidentally has a preventive colonoscopy scheduled in August. Other medical issues - no changes to these meds: IBS Bentyl Anxiety Buspirone 5 mg 3 times daily Migraines Topiramate 25 mg twice daily Hyperlipidemia Continue colestipol (2) Abdominal pain: (3) Nausea: (4) Acute GI bleeding: (5) Fatigue: (6) Diverticulosis of colon: (7) GERD without esophagitis: (8) Hyperlipidemia: (9) Hypothyroidism, unspecified: (10) Migraine: (11) GERD (gastroesophageal reflux disease): Discharge Plan Discharge Items Patient Disposition: Home - Self-Care Reason For Visit: GI BLEED, DIVERTICULOSIS Discharge Diagnosis: gastritis Activity: Per Instructions section Activity Comment: take it easy for the next few days, return to work next week Non-emergency contact: Primary Care Provider and Hand Binder Cutter Call non-emergency contact if: you have any medication questions and your symptoms worsen Follow-up/Referrals: José Miguel Apple MD [Primary Care Provider] - 07/25/19 3:45 pm (Please, follow up with Dr. José Miguel Apple on WednesdayJuly 25 at 3:45 pm. *If you need to change this appointment, call the office at [phone].) Diet: Regular Addtl Attending Provider Instructions: Gastritis Gastritis is an inflammation of the stomach that results in erosion. It can cause upper abdominal pain, nausea, and blood/black stool. It is usually due to alcohol, NSAIDs, and stress. To help this heal over, avoid NSAIDs, alcohol, work on decreasing stress, and avoiding spicy food. Well have you continue your protonix at 40mg twice a day, but also for the time being add famotidine (Pepcid) 20mg twice a day for extra acid suppression. Well want you to follow with your regular docs, as this heals theyll be able to guide you on reducing the medication. Its going to be just as important to work on stress management including identification of current stressors and promotion of activities to help relieve stress such as physical activity or meditation. Definitely get seen right away if you were to notice substantial amount of blood in stool or vomit, or if you were to have new or increased abdominal pain, and fever. Because your intestines are about 25 feet of pipe, it can be normal for the black to take several days to clear from your stool. Follow up with PCP for management of acid suppression and stress, as above noted. Stress Chronic stress has physical manifestation that affects the stomachs ability to heal. Over time, the lining of the stomach loses its protective layer and is exposed to the acid and bacteria that is normally in the stomach. This leads to erosion and future complications. The gastritis can lead to ulcer and potentially cause perforation of the stomach, and far more important, stress really can lead to a whole slew of health problems and misery, we dont want you to suffer from any of that! Headaches Headaches can be a mixed of migraine (why youre on the topiramate) and tension headaches. Tension headaches can be from tension in the back neck muscles that presses down on the nerves that run through it. Very typically, people will have a vicious cycle where the migraine headache causes a tension headache, then the pain from the tension headache creates the next migraine. While the Topamax (topiramate) will help reduce the migraines, it wont really do anything for tension. Have your do the pressure point therapy we did in the hospital find the areas at the base of your skull that are tender, then hold a really heavy, steady pressure for maybe 30-60 seconds at a time, to help settle down the tension headaches. (stress management helps with reducing tension headaches too!) Pending Studies at Discharge: Yes Studies:: biopsy results from EGD Stand-Alone Forms: Call Back Authorization, Work/School Release (ED), [facility] Medications and DC Order Prescriptions: New famotidine [Pepcid] 20 mg tablet 20 mg PO BID 42 Days Qty: 84 RF: 0 Continued ascorbic acid (vitamin C) 500 mg tablet,chewable 1,000 mg PO QAM RF: 0 buspirone 5 mg tablet 5 mg PO TID PRN (Reason: anxiety) Qty: 90 RF: 2 pantoprazole [Protonix] 40 mg tablet,delayed release (DR/EC) 40 mg PO BID Qty: 180 RF: 0 colestipol 1 gram tablet 2,000 g PO QAM Qty: 30 RF: 0 topiramate [Topamax] 25 mg tablet 25 mg PO BID RF: 0 cholecalciferol (vitamin D3) 1,000 unit capsule 1,000 units PO QDD RF: 0 ibuprofen [Advil] 200 mg Tablet 200 mg PO Q6H PRN (Reason: Pain) RF: 0 Advantage Probiotic Gummie 2 tab PO QAM RF: 0 Alive Women's Gummy Vitamin 200 mcg- 37.5 mg Tablet,Chewable 2 tab PO QAM RF: 0 Discharge Orders: Discharge Order (Routine); Ordered 07/18/19 Ordered By: Kvng Benites Admission Data Admit Date/Time: 07/17/19 15:57 Attending Provider: Kvng Benites Admit Provider: [place] Carroll Primary Care Provider: José Miguel Apple Other Providers: Lisbet Marino ; Kvng Benites ; Lorrie Gordillo Other Interventions: Discharge Summary Assessment (RN) Last Done: 07/18/19 17:11 DC Date/Time DO NOT enter until pt leaves facility: 07/18/19 17:49 Supervising Attestation I personally examined the patient and verified all coto points of history and exam, discussed case, and agree with decision making with Devin Smith MS2. Feeling okay. Feeling up to going. GI input appreciated. Scope discussed with patient. Stress management discussed at length as well. Vitals noted, in general she is awake and alert pleasant no distress. HEENT normocephalic atraumatic mucous members moist. Breathing unlabored no accessory muscle use good effort. Skin shows no rashes no pallor or icterus. Neuro shows no focal deficits. Upper GI bleed related to gastritis, most likely inflicted by a psychoemotional stress. She is not on NSAIDs, she does not drink significant amounts of alco hol, she is already on twice daily PPI. For now send out on H2 in addition to the PPI, but discussed this needs to be a short-term fix only. Close PCP and GI follow-up. Discussed stress management and a multimodal way and in-depth. Headachestoday she had suboccipital tension headache worse on the right, inhibitory pressure done with improvement in the headache, discussed to how to do this as well. It appears that quite likely her headaches are a combination of migraine and tension headache. Stable for home, otherwise as above.
--- NOTE | 2019-07-18 18:30 | Discharge Summary ---
Date of Service July 18, 2019 Admission HPI Per Admitting Provider 49-year-old female with IBS, GERD, migraine headaches, anxiety and recent history of diverticulitis presents after 1 day of significant epigastric pain and melanotic stools. She states that the abdominal pain became severe this afternoon and was radiating into her back. She stated that the pain also migrated into the right lower quadrant. Patient was recently treated for diverticulitis in June. She has a past medical history of diverticulosis diagnosed on a colonoscopy in 2015. She states that she began to have chronic abdominal symptoms around that time 2015. She has had extensive work-ups over the past with ultimately a diagnosis of IBS and GERD. She believes that her symptoms are aggravated by stressshe describes an increase of stress over the summer which correlates with worsening IBS symptoms. She has a history of diarrhea and constipation, but recently has been on antibiotics for diverticulitis and has had predominantly loose stools. She has not seen sidra blood in her stools. She did take ibuprofen this morning which did not help with the pain. She does not take NSAIDs on a regular basis. The patient is not on a blood thinner. She denies a family history of IBD or colon cancer. Review of systems Constitutional; patient denies fevers, chills CV; denies chest pain Pulmonary; denies shortness of breath Abdomen; abdominal pain, nausea/diarrhea as described above Principal Diagnosis gastritis Discharge Data Allergies Allergy/AdvReac Type Severity Reaction Status Date / Time strawberry AdvReac Severe Anaphylaxis Verified 07/17/19 10:23 acetaminophen [From Percocet] AdvReac Mild Itchy Verified 07/17/19 10:23 oxycodone [From Percocet] AdvReac Mild Itchy Verified 07/17/19 10:23 Consultations 07/17/19 13:44 Consult Gastroenterology Stat 07/17/19 14:05 ED Decision to Admit Stat 07/17/19 19:03 Consult Gastroenterology Routine Procedures Performed Operation Date: 07/18/19 09:55 Actual Procedures p EGD Biopsy Cytology - Lorrie Gordillo Ordered Studies 07/17/19 09:56 CT abd pelvis IV con only Stat Total Time Total Time Spent Total Time Spent (In Minutes): >30 Discharge Plan Discharge Items Patient Disposition: Home - Self-Care Reason For Visit: GI BLEED, DIVERTICULOSIS Discharge Diagnosis: gastritis Activity: Per Instructions section Activity Comment: take it easy for the next few days, return to work next week Non-emergency contact: Primary Care Provider and Revit Drafter Call non-emergency contact if: you have any medication questions and your symptoms worsen Follow-up/Referrals: José Miguel Apple MD [Primary Care Provider] - 07/25/19 3:45 pm (Please, follow up with Dr. José Miguel Apple on WednesdayJuly 25 at 3:45 pm. *If you need to change this appointment, call the office at [phone].) Diet: Regular Addtl Attending Provider Instructions: Gastritis Gastritis is an inflammation of the stomach that results in erosion. It can cause upper abdominal pain, nausea, and blood/black stool. It is usually due to alcohol, NSAIDs, and stress. To help this heal over, avoid NSAIDs, alcohol, work on decreasing stress, and avoiding spicy food. Well have you continue your protonix at 40mg twice a day, but also for the time being add famotidine (Pepcid) 20mg twice a day for extra acid suppression. Well want you to follow with your regular docs, as this heals theyll be able to guide you on reducing the medication. Its going to be just as important to work on stress management including identification of current stressors and promotion of activities to help relieve stress such as physical activity or meditation. Definitely get seen right away if you were to notice substantial amount of blood in stool or vomit, or if you were to have new or increased abdominal pain, and fever. Because your intestines are about 25 feet of pipe, it can be normal for the black to take several days to clear from your stool. Follow up with PCP for management of acid suppression and stress, as above noted. Stress Chronic stress has physical manifestation that affects the stomachs ability to heal. Over time, the lining of the stomach loses its protective layer and is exposed to the acid and bacteria that is normally in the stomach. This leads to erosion and future complications. The gastritis can lead to ulcer and potentially cause perforation of the stomach, and far more important, stress really can lead to a whole slew of health problems and misery, we dont want you to suffer from any of that! Headaches Headaches can be a mixed of migraine (why youre on the topiramate) and tension headaches. Tension headaches can be from tension in the back neck muscles that presses down on the nerves that run through it. Very typically, people will have a vicious cycle where the migraine headache causes a tension headache, then the pain from the tension headache creates the next migraine. While the Topamax (topiramate) will help reduce the migraines, it wont really do anything for tension. Have your do the pressure point therapy we did in the hospital find the areas at the base of your skull that are tender, then hold a really heavy, steady pressure for maybe 30-60 seconds at a time, to help settle down the tension headaches. (stress management helps with reducing tension headaches too!) Pending Studies at Discharge: Yes Studies:: biopsy results from EGD Stand-Alone Forms: Call Back Authorization, Work/School Release (ED), [facility] Medications and DC Order Prescriptions: New famotidine [Pepcid] 20 mg tablet 20 mg PO BID 42 Days Qty: 84 RF: 0 Continued ascorbic acid (vitamin C) 500 mg tablet,chewable 1,000 mg PO QAM RF: 0 buspirone 5 mg tablet 5 mg PO TID PRN (Reason: anxiety) Qty: 90 RF: 2 pantoprazole [Protonix] 40 mg tablet,delayed release (DR/EC) 40 mg PO BID Qty: 180 RF: 0 colestipol 1 gram tablet 2,000 g PO QAM Qty: 30 RF: 0 topiramate [Topamax] 25 mg tablet 25 mg PO BID RF: 0 cholecalciferol (vitamin D3) 1,000 unit capsule 1,000 units PO QDD RF: 0 ibuprofen [Advil] 200 mg Tablet 200 mg PO Q6H PRN (Reason: Pain) RF: 0 Advantage Probiotic Gummie 2 tab PO QAM RF: 0 Alive Women's Gummy Vitamin 200 mcg- 37.5 mg Tablet,Chewable 2 tab PO QAM RF: 0 Discharge Orders: Discharge Order (Routine); Ordered 07/18/19 Ordered By: Kvng Benites Admission Data Admit Date/Time: 07/17/19 15:57 Attending Provider: Kvng Benites Admit Provider: Berlin Carroll Primary Care Provider: José Miguel Apple Other Providers: Lisbet Marino ; Kvng Beniets ; Lorrie Gordillo Other Interventions: Discharge Summary Assessment (RN) Last Done: 07/18/19 17:11 DC Date/Time DO NOT enter until pt leaves facility: 07/18/19 17:49 Supervising Physician Co-Signing Physician Notes note generated for bureaucratic purposes only - please see discharge summary generated by myself in conjunction with Devin LEGER for actual clinical details.
[2019-07-18] MEDS ORDERED: HYOSCYAMINE SULFATE 0.125 MG TAB PO SCH (21:00)
[2019-07-18] MEDS ORDERED: HYOSCYAMINE SULFATE 0.125 MG TAB SL SCH (21:00)
== END 2019-07-18 17:49 | disposition home or self-care (01) ==
LOC: 2N 09:18 → ED 09:18 → 2N 16:42

== ENCOUNTER 2023-10-08 14:39 | Observation (INO) ==
[2023-10-08] MEDS ORDERED: ACETAMINOPHEN 1,000 MG/100 ML VIAL IV STA ×2 (14:54→19:26)
[2023-10-08] MEDS ORDERED: ONDANSETRON INJ 2 MG/ML 2 ML VIAL IV STA ×2 (14:54→19:26)
--- NOTE | 2023-10-08 14:54 | ED Triage Note ---
Date of Service October 08, 2023 Provider in Triage Author: Swapna Hendricks History of Present Illness This patient was briefly evaluated while in triage. An abbreviated physical exam was performed. This patient is a 53-year-old Female who presents to the ED for evaluation of nausea/vomiting, diarrhea, Right lower abdominal pain. Denies fevers. Recent COVID exposure, home test negative. Physical Exam Constitutional: alert and oriented x3. no acute distress. HEENT: normocephalic, atraumatic. normal conjunctiva.PERRLA. EOM's grossly intact. Respiratory: lungs are clear to auscultation without wheezes, rhonchi, or rales bilaterally. equal chest rise. normal respiratory effort, no accessory muscle use. Cardiovascular: normal heart sounds without murmur. regular rate and rhythm. GI: abdomen is soft, RLQ tenderness. No palpable masses. No rebound tenderness or guarding. MSK: moves all 4 extremities spontaneously Psych:appropriate mood and affect. Initial orders for labs and / or imaging were placed and patient was placed in the waiting area until a bed is available. Please see further documentation for the full ED course.
[2023-10-08 16:00] LABS: Basophils # (auto) 0.04 K/uL (0.00-0.20); Basophils % (auto) 0.6 %; Eosinophils # (auto) 0.14 K/uL (0.00-0.50); Eosinophils % (auto) 2.2 %; Hematocrit (blood only) 37.9 % (37.0-47.0); Hemoglobin 11.7 g/dl (12.0-16.0); Immature Granulocytes # (auto) 0.02 K/uL (0.01-0.20); Immature Granulocytes % (auto) 0.3 %; Lymphocytes # (auto) 2.03 K/uL (1.20-3.40); Lymphocytes % (auto) 31.4 %; Mean Corpuscular Hemoglobin 27.4 pg (25.0-34.0); Mean Corpuscular Hgb Conc 30.9 g/dL (32.0-36.0); Mean Corpuscular Volume 88.8 fL (80.0-100.0); Mean Platelet Volume 9.5 fL (9.4-12.4); Monocytes # (auto) 0.52 K/uL (0.11-0.59); Neutrophils # (auto) 3.72 K/uL (1.40-6.50); Neutrophils % (auto) 57.5 %; Platelet Count 267 K/uL (130-400); RDW Coefficient of Variation 13.2 % (11.5-14.5); RDW Standard Deviation 42.6 fL (36.4-46.3); Red Blood Count 4.27 M/uL (4.20-5.40); White Blood Count 6.47 K/ul (4.8-10.8)
[2023-10-08 16:14] LABS: Albumin Globulin Ratio 1.3 (0.9-2); Albumin Level 3.9 gm/dl (3.4-5.0); BUN Creatinine Ratio 20.5 (10-20); Bilirubin,Total 0.3 mg/dl (0.2-1.0); Calcium 8.7 mg/dl (8.6-10.3); Creatinine Clr Calc Pharmacy 68.5 ml/min; Est GFR (Non-African American) 81.1 ml/min; Globulin 2.9 gm/dl (2.5-4.0); Potassium 3.8 mmol/L (3.5-5.1); Total Protein 6.8 gm/dl (6.0-8.3)
[2023-10-08] MEDS ORDERED: OPTIRAY 320 500ml IV ONE (16:37)
--- NOTE | 2023-10-08 16:56 | CT Scan Report ---
CT OF THE ABDOMEN AND PELVIS WITH CONTRAST CLINICAL HISTORY: Right lower quadrant abdominal pain. COMPARISON STUDY: CT of the abdomen and pelvis August 04, 2022. TECHNIQUE: Following IV administration of 89 mL of Optiray, axial images of the abdomen and pelvis we re obtained from the lung bases to the proximal femurs. Images were reviewed in the axial, sagittal, and coronal planes. IV contrast was administered without complication. Automated exposure control wa s utilized for the study. A dose lowering technique was utilized adhering to the principles of ALARA . CT DOSE: 428.56 mGy.cm FINDINGS: Lung bases are unremarkable. No pneumatosis, free air or portal venous gas is present. Subc entimeter right hepatic lobe lesion is again noted. This is benign. Slight dilatation of the common b ile duct is unchanged and likely related to cholecystectomy. There is hepatic steatosis. Spleen, adre nal glands, kidneys and pancreas are normal. There is no hydronephrosis. There is no evidence for acu te appendicitis. Small and large bowel are mildly fluid-filled. There is no evidence for a bowel obst ruction status post Mario-en-Y gastric bypass.. Segmental left lower quadrant small bowel intussuscept ion is of doubtful significance. Major vasculature is patent. No lymphadenopathy. No fluid collection s are present. IMPRESSION: 1. No evidence for acute appendicitis. 2. No bowel obstruction. No bowel wall thickening. Mildly fluid-filled small and large bowel. 3. Short segment left lower quadrant small bowel intussusception which is of doubtful significance. 4. Hepatic steatosis. ACT 112: Negative or not required by law. Electronically signed by: Jenaro Elizabeth M.D. 10/08/2023 4:53 PM
[2023-10-08] MEDS ORDERED: SODIUM CHLORIDE 0.9% 1,000 ML IV ONE ×2 (18:25→19:35)
[2023-10-08] MEDS ORDERED: FAMOTIDINE 20MG IV PUSH 20 MG/5 ML SYR IV STA (18:28)
[2023-10-08] MEDS ORDERED: SUCRALFATE 1 GM/10 ML UDC PO STA (19:26)
[2023-10-08] MEDS ORDERED: DICYCLOMINE HCL 10 MG/ML 2 ML AMP/VIAL IM ONE (19:35)
[2023-10-08 19:48] LABS: Adenovirus PCR Not Detected (NotDetected); Bordetella parapertussis PCR Not Detected (NotDetected); Bordetella pertussis PCR Not Detected (NotDetected); Chlamydia pneumoniae PCR Not Detected (NotDetected); Coronavirus 229E PCR Not Detected (NotDetected); Coronavirus CoV-2 (COVID19)PCR Not Detected (NotDetected); Coronavirus HKU1 PCR Not Detected (NotDetected); Coronavirus NL63 PCR Not Detected (NotDetected); Coronavirus OC43PCR Not Detected (NotDetected); Human Metapneumovirus PCR Not Detected (NotDetected); Influenza A PCR Not Detected (NotDetected); Influenza B PCR Not Detected (NotDetected); Mycoplasma pneumoniae PCR Not Detected (NotDetected); Parainfluenza Virus 1 PCR Not Detected (NotDetected); Parainfluenza Virus 2 PCR Not Detected (NotDetected); Parainfluenza Virus 3 PCR Not Detected (NotDetected); Parainfluenza Virus 4 PCR Not Detected (NotDetected); Respiratory Syncytial VirusPCR Not Detected (NotDetected); Rhinovirus/Enterovirus PCR Not Detected (NotDetected)
[2023-10-08 20:39] LABS: Appearance Urine Clear (Clear); Bilirubin Urine Negative (Negative); Blood Urine Negative (Negative); Color Urine Yellow; Glucose Urine UA Negative (Negative); Ketones Urine Negative (Negative); Leukocyte Esterase Urine Negative (Negative); Nitrite Urine Negative (Negative); Protein Urine Negative (Negative); Specific Gravity Urine > 1.045 (1.000-1.030); Urobilinogen Urine Negative (Negative)
--- NOTE | 2023-10-08 22:23 | Emergency Department Note ---
Impression & Plan Diarrhea, Dehydration, IBS (irritable bowel syndrome), S/P gastric bypass ED Provider Note NAME: STEFFI MULLINS AGE: 53 SEX: F ARRIVES VIA: Walk-In INFORMANT: Patient ED PROVIDER(S): Tigre Burnham MD CHIEF COMPLAINT: nausea, diarrhea, body aches. 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 She reports that the stool appeared yellowish-green. She has any recent antibiotics. She reports she has been exposed to COVID-19 patient at work. She denies any cough or congestion, chest pain or shortness of breath. Of note, the patient did arrive to emergency department during time of high volume, acuity and prolonged emergency department waiting times. Critical pathways initiated from triage. On my evaluation the patient is fatigued appearing but no acute distress, afebrile with stable vital signs. She appears clinically dry. She is generalized abdominal discomfort without discrete tenderness. WBC, HCT and platelets within normal limits. Chemistry without metabolic acidosis. BUN/creatinine 20.5, consistent with patient's clinically dry appearance. LFTs are unremarkable. CPK within normal limits. Lipase is not elevated. UA without convincing evidence of infection. Respiratory viral panel/BioFire was negative. Stool PCR was obtained and is pending. CT of the abdomen pelvis was performed and demonstrates mildly fluid-filled small and large bowel consistent with the patient's diarrhea. Incidental note is made of a "short segment left lower quadrant small bowel intussusception which is of doubtful significance" and felt to be not related to the patient's current symptoms at this time. Patient did report feeling some improvement initially after IV hydration, Zofran, Pepcid, APAP, IM dicyclomine. However diarrhea subsequently resuming with high-frequency and patient feeling nausea with dry heaving. Given the persistence of her symptoms she agrees with plan for referral to hospital service for admission for supportive care. Of note, I did review the patient's CT findings with general surgery, Dr. Mendoza who agrees that findings are not of clinical significance. Case was discussed with Dr. Hough, [facility] [place], who will evaluate the patient for admission. Triage Nursing notes reviewed and agree them. Prior/external medical records reviewed Vital Signs: reviewed Differential diagnosis: Gastroenteritis, food borne illness, infections, appendicitis, diverticulitis, inflammatory bowel disease, obstruction, GI bleed, biliary pathology, volvulus, as well as other pathologies. ER treatment provided: See below. Diagnostics interpreted by me: Cardiac Monitoring: An order for continuous cardiac monitoring was placed and demonstrated normal sinus rhythm, 81 bpm, no ectopy Laboratory studies: See below Imaging studies: See below Consultation(s): Case was discussed with Dr. Hough [facility] [place], who will evaluate the patient for admission. 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 She reports that the stool appeared yellowish-green. She has any recent antibiotics. She reports she has been exposed to COVID-19 patient at work. She denies any cough or congestion, chest pain or shortness of breath. ROS: See above HPI for pertinent positives & negatives. A total of 10 systems reviewed and were otherwise negative. VITALS:See Below PHYSICAL EXAMINATION: GENERAL: Awake, alert, fatigued-appearing, in no distress HENT: Normocephalic, atraumatic. Oropharynx with dry mucous membranes and otherwise unremarkable. EYES: Normal conjunctiva. Sclera non-icteric. NECK: Supple. No nuchal rigidity. FROM. No JVD. RESPIRATORY: Clear to auscultation. CARDIAC: Regular rate, normal rhythm. Extremities warm and well perfused. Pulses equal. ABDOMEN: Soft, non-distended. Generalized abdominal discomfort without discrete tenderness. No rebound or guarding. No masses. RECTAL: Deferred. MUSCULOSKELETAL: Chest examination reveals no tenderness. The back is symmetrical on inspection without obvious abnormality. There is no CVA tenderness to palpation. No joint edema. LOWER EXTREMITIES: Calves are equal size bilaterally and non-tender. No edema. No discoloration. NEURO: Normal sensorium. No sensory or motor deficits noted. SKIN: No rash or jaundice noted. Tigre E Cross, MD Past Med/Surg History Medical History Right lower quadrant abdominal pain Tick bite Fatigue Elevated blood pressure reading Diverticulosis of colon Anxiety Abnormal weight gain GERD without esophagitis Headache Hyperlipidemia Hypothyroidism, unspecified Migraine Obesity, unspecified Headaches, cluster GERD (gastroesophageal reflux disease) IBS (irritable bowel syndrome) Surgical History S/P gastric bypass H/O laparoscopy exploratory Hx of breast biopsy percutaneous needle core Status post tubal ligation Cholecystectomy planned History of hysterectomy Family History Aunt Migraines Breast cancer Mother Hypothyroidism A-fib Father Cardiac disorder Diabetes Grandfather (Maternal) Cardiac disorder Diabetes Grandfather (Paternal) Cardiac disorder Prostate cancer Family/Other Hypertension Heart disease Kidney disease Liver disease Other Anemia Breast lump Endometriosis Fibroids Ovarian cyst Social History Smoking Status: Never smoker Second Hand Exposure: No; Do You Dip or Chew Tobacco: No; Hx Alcohol Use: Yes Alcohol type: wine Hx Substance Use: No Preferred Language: Maltese Communication Ability: Effective Visual Impairment: No Limitations Hearing Ability: Normal [employer] Required: No Beliefs That Will Affect Care: None marital status: Current Living Situation: Spouse current occupational status: employed 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 Feels Safe at Home: Yes Assistive Devices: None Allergies Allergies Allergy/AdvReac Type Severity Reaction Status Date / Time strawberry AdvReac Severe Anaphylaxis Verified 10/08/23 23:02 oxycodone [From Percocet] AdvReac Mild Itchy Verified 10/08/23 23:02 Home Meds Home Medications Medication Instructions Recorded Confirmed pediatric [id number] 2 tab PO DAILY 06/30/21 10/08/23 (Flintstones Complete (iron) chewable tablet) biotin 1 mg capsule 1 mg PO DAILY 10/02/21 10/08/23 acetaminophen 500 mg tablet 1,000 mg PO Q6H PRN Pain 10/08/23 10/08/23 (Tylenol Extra Strength) cyanocobalamin (vitamin B-12) 1,000 mcg PO .Q WED 10/08/23 10/08/23 1,000 mcg tablet (Vitamin B-12) iron,carbonyl 65 mg-vitamin C 125 2 tab PO DAILY 10/08/23 10/08/23 mg tablet,delayed release (Vitron-C) Previous Rx's Medication Instructions Recorded cholecalciferol (vitamin D3) 125 125 mcg PO DAILY #30 caps 04/17/21 mcg (5,000 unit) capsule pantoprazole 40 mg tablet,delayed 40 mg PO DAILY #90 tabs 04/28/23 release (Protonix) ondansetron HCl 4 mg tablet 4 mg PO Q6H PRN IBS Flare-up, 06/28/23 nausea #15 tabs Results & Data (ED) Vital Signs Vital Signs - 24 hr 10/08/23 14:51 10/08/23 18:44 10/08/23 19:49 Temperature 36.7 C Temperature Source Temporal Artery Scan Pulse Rate 85 Pulse Rate [Apical] 70 81 Pulse Rhythm [Apical] Regular Respiratory Rate 16 18 18 Respiratory Effort / Characteristics Non-Labored Non-Labored Spontaneous Respiratory Depth Normal Normal Respiratory Pattern Regular Regular Blood Pressure 135/87 Blood Pressure [Right Arm] 136/83 145/96 H Blood Pressure Mean 103 Blood Pressure Mean [Right Arm] 100 112 Blood Pressure Position Sitting Blood Pressure Position [Right Arm] Lying Pulse Oximetry 98 96 Oxygen Delivery Method Room Air Room Air Room Air Sepsis Recent Fever Within 48 Hours No Sepsis New/Unexplained Change in Mental Status No Sepsis Action Taken by Nursing No Action Required 10/08/23 21:58 10/08/23 21:59 Temperature Temperature Source Pulse Rate 55 L Pulse Rate [Apical] 58 L Pulse Rhythm [Apical] Respiratory Rate 18 Respiratory Effort / Characteristics Non-Labored Spontaneous Respiratory Depth Normal Respiratory Pattern Regular Blood Pressure Blood Pressure [Right Arm] 117/66 Blood Pressure Mean Blood Pressure Mean [Right Arm] 83 Blood Pressure Position Blood Pressure Position [Right Arm] Lying Pulse Oximetry 98 Oxygen Delivery Method Room Air Sepsis Recent Fever Within 48 Hours Sepsis New/Unexplained Change in Mental Status Sepsis Action Taken by Nursing Laboratory Data Attestation: I reviewed the patient's lab results. 10/08/23 15:40 10/08/23 15:40 Lab Results 10/08/23 10/08/23 10/08/23 Range/Units 15:40 20:19 20:53 WBC 6.47 (4.8-10.8) K/ul RBC 4.27 (4.20-5.40) M/uL Hgb 11.7 L (12.0-16.0) g/dl Hct 37.9 (37.0-47.0) % MCV 88.8 (80.0-100.0) fL MCH 27.4 (25.0-34.0) pg MCHC 30.9 L (32.0-36.0) g/dL RDW Std Deviation 42.6 (36.4-46.3) fL RDW Coeff of Rowdy 13.2 (11.5-14.5) % Plt Count 267 (130-400) K/uL MPV 9.5 (9.4-12.4) fL Immature Gran % (Auto) 0.3 % Neut % (Auto) 57.5 % Lymph % (Auto) 31.4 % Kidder % (Auto) 8.0 % Eos % (Auto) 2.2 % Baso % (Auto) 0.6 % Neut # (Auto) 3.72 (1.40-6.50) K/uL Lymph # (Auto) 2.03 (1.20-3.40) K/uL Kidder # (Auto) 0.52 (0.11-0.59) K/uL Eos # (Auto) 0.14 (0.00-0.50) K/uL Baso # (Auto) 0.04 (0.00-0.20) K/uL Immature Gran # (Auto) 0.02 (0.01-0.20) K/uL Sodium 142 (136-145) mmol/L Potassium 3.8 (3.5-5.1) mmol/L Chloride 113 H (98-107) mmol/L Carbon Dioxide 23 (21-32) mmol/L Anion Gap 6 (3-11) BUN 17 (6-23) mg/dl Creatinine 0.83 (0.6-1.2) mg/dl Est Cr Clr Drug Dosing 68.5 ml/min Est GFR ( Amer) 94.0 ml/min Est GFR (Non-Af Amer) 81.1 ml/min BUN/Creatinine Ratio 20.5 H (10-20) Glucose 84 (70-99(Fasting)) mg/dl Calcium 8.7 (8.6-10.3) mg/dl Total Bilirubin 0.3 (0.2-1.0) mg/dl AST 16 (13-39) U/L ALT 16 (7-52) U/L Alkaline Phosphatase 210 H (34-104) U/L Total Creatine Kinase 50 (26-192) U/L Total Protein 6.8 (6.0-8.3) gm/dl Albumin 3.9 (3.4-5.0) gm/dl Globulin 2.9 (2.5-4.0) gm/dl Albumin/Globulin Ratio 1.3 (0.9-2) Lipase 13 (11-82) U/L Urine Color Yellow Urine Appearance Clear (Clear) Urine pH 5.0 (4.5-7.5) Ur Specific [place] > 1.045 H (1.000-1.030) Urine Protein Negative (Negative) Urine Glucose (UA) Negative (Negative) Urine Ketones Negative (Negative) Urine Blood Negative (Negative) Urine Nitrite Negative (Negative) Urine Bilirubin Negative (Negative) Urine Urobilinogen Negative (Negative) Ur Leukocyte Esterase Negative (Negative) Stl C. cayetanensis PCR Not Detected (NotDetected) Stool Rotavirus A PCR Not Detected (NotDetected) Stl Adenov F 40/41 PCR Not Detected (NotDetected) Stool Astrovirus (PCR) Not Detected (NotDetected) Stool Campylobacter PCR Not Detected (NotDetected) Stl C. diff Tox B Gene (Neg) Stool Cryptosporidium PCR Not Detected (NotDetected) Stl E.coli Shiga Tox PCR Not Detected (NotDetected) Stool E coli O157 PCR Stl Enterotoxigenic E PCR Not Detected (NotDetected) Stool EPEC (PCR) Not Detected (NotDetected) Stool EAEC (PCR) Not Detected (NotDetected) Stl E. histolytica PCR Not Detected (NotDetected) Stool Giardia Lamblia PCR Not Detected (NotDetected) Stool Salmonella PCR Not Detected (NotDetected) Stool Sapovirus (PCR) Not Detected (NotDetected) Stl P. shigelloides PCR Not Detected (NotDetected) Stl Shigella/EIEC PCR Not Detected (NotDetected) St Y.enterocolitica PCR Not Detected (NotDetected) Stool Vibrio (PCR) Not Detected (NotDetected) Stl Vibrio cholerae PCR Not Detected (NotDetected) Stl Norovirus GI/GII PCR Not Detected (NotDetected) Adenovirus (PCR) (NotDetected) B. pertussis DNA (PCR) (NotDetected) B.parapertussis DNA PCR (NotDetected) C. pneumoniae DNA (PCR) (NotDetected) Coronavirus OC43 (PCR) (NotDetected) Coronavirus HKU1 (PCR) (NotDetected) Coronavirus 229E (PCR) (NotDetected) SARS-CoV-2 (PCR) (NotDetected) Coronavirus NL63 (PCR) (NotDetected) Human Metapneumovir PCR (NotDetected) Influenza Type A (PCR) (NotDetected) Influenza Type B (PCR) (NotDetected) M. pneumoniae (PCR) (NotDetected) Parainfluenza 1 (PCR) (NotDetected) Parainfluenza 2 (PCR) (NotDetected) Parainfluenza 3 (PCR) (NotDetected) Parainfluenza 4 (PCR) (NotDetected) RSV (PCR) (NotDetected) Entero/Rhino (PCR) (NotDetected) 10/08/23 Range/Units Unknown WBC (4.8-10.8) K/ul RBC (4.20-5.40) M/uL Hgb (12.0-16.0) g/dl Hct (37.0-47.0) % MCV (80.0-100.0) fL MCH (25.0-34.0) pg MCHC (32.0-36.0) g/dL RDW Std Deviation (36.4-46.3) fL RDW Coeff of Rowdy (11.5-14.5) % Plt Count (130-400) K/uL MPV (9.4-12.4) fL Immature Gran % (Auto) % Neut % (Auto) % Lymph % (Auto) % Kidder % (Auto) % Eos % (Auto) % Baso % (Auto) % Neut # (Auto) (1.40-6.50) K/uL Lymph # (Auto) (1.20-3.40) K/uL Kidder # (Auto) (0.11-0.59) K/uL Eos # (Auto) (0.00-0.50) K/uL Baso # (Auto) (0.00-0.20) K/uL Immature Gran # (Auto) (0.01-0.20) K/uL Sodium (136-145) mmol/L Potassium (3.5-5.1) mmol/L Chloride (98-107) mmol/L Carbon Dioxide (21-32) mmol/L Anion Gap (3-11) BUN (6-23) mg/dl Creatinine (0.6-1.2) mg/dl Est Cr Clr Drug Dosing ml/min Est GFR ( Amer) ml/min Est GFR (Non-Af Amer) ml/min BUN/Creatinine Ratio (10-20) Glucose (70-99(Fasting)) mg/dl Calcium (8.6-10.3) mg/dl Total Bilirubin (0.2-1.0) mg/dl AST (13-39) U/L ALT (7-52) U/L Alkaline Phosphatase (34-104) U/L Total Creatine Kinase (26-192) U/L Total Protein (6.0-8.3) gm/dl Albumin (3.4-5.0) gm/dl Globulin (2.5-4.0) gm/dl Albumin/Globulin Ratio (0.9-2) Lipase (11-82) U/L Urine Color Urine Appearance (Clear) Urine pH (4.5-7.5) Ur Specific [place] (1.000-1.030) Urine Protein (Negative) Urine Glucose (UA) (Negative) Urine Ketones (Negative) Urine Blood (Negative) Urine Nitrite (Negative) Urine Bilirubin (Negative) Urine Urobilinogen (Negative) Ur Leukocyte Esterase (Negative) Stl C. cayetanensis PCR Cancelled (NotDetected) Stool Rotavirus A PCR Cancelled (NotDetected) Stl Adenov F 40/41 PCR Cancelled (NotDetected) Stool Astrovirus (PCR) Cancelled (NotDetected) Stool Campylobacter PCR Cancelled (NotDetected) Stl C. diff Tox B Gene Negative Cdiff Gene (Neg) Stool Cryptosporidium PCR Cancelled (NotDetected) Stl E.coli Shiga Tox PCR Cancelled (NotDetected) Stool E coli O157 PCR Cancelled Stl Enterotoxigenic E PCR Cancelled (NotDetected) Stool EPEC (PCR) Cancelled (NotDetected) Stool EAEC (PCR) Cancelled (NotDetected) Stl E. histolytica PCR Cancelled (NotDetected) Stool Giardia Lamblia PCR Cancelled (NotDetected) Stool Salmonella PCR Cancelled (NotDetected) Stool Sapovirus (PCR) Cancelled (NotDetected) Stl P. shigelloides PCR Cancelled (NotDetected) Stl Shigella/EIEC PCR Cancelled (NotDetected) St Y.enterocolitica PCR Cancelled (NotDetected) Stool Vibrio (PCR) Cancelled (NotDetected) Stl Vibrio cholerae PCR Cancelled (NotDetected) Stl Norovirus GI/GII PCR Cancelled (NotDetected) Adenovirus (PCR) Not Detected (NotDetected) B. pertussis DNA (PCR) Not Detected (NotDetected) B.parapertussis DNA PCR Not Detected (NotDetected) C. pneumoniae DNA (PCR) Not Detected (NotDetected) Coronavirus OC43 (PCR) Not Detected (NotDetected) Coronavirus HKU1 (PCR) Not Detected (NotDetected) Coronavirus 229E (PCR) Not Detected (NotDetected) SARS-CoV-2 (PCR) Not Detected (NotDetected) Coronavirus NL63 (PCR) Not Detected (NotDetected) Human Metapneumovir PCR Not Detected (NotDetected) Influenza Type A (PCR) Not Detected (NotDetected) Influenza Type B (PCR) Not Detected (NotDetected) M. pneumoniae (PCR) Not Detected (NotDetected) Parainfluenza 1 (PCR) Not Detected (NotDetected) Parainfluenza 2 (PCR) Not Detected (NotDetected) Parainfluenza 3 (PCR) Not Detected (NotDetected) Parainfluenza 4 (PCR) Not Detected (NotDetected) RSV (PCR) Not Detected (NotDetected) Entero/Rhino (PCR) Not Detected (NotDetected) Administered Medications Discontinued Medications Dicyclomine HCl (Dicyclomine Hcl 10 Mg/Ml 2 Ml Amp/Vial) 20 mg IM NOW ONE Stop: 10/08/23 19:36 Last Admin: 10/08/23 19:45 Dose: 20 mg Documented By: ALIZA Acetaminophen (Ofirmev) 1,000 mg in 100 mls @ 400 mls/hr IV NOW STA Stop: 10/08/23 15:08 Last Admin: 10/08/23 19:06 Dose: Not Given Documented By: ALIZA Sodium Chloride (Nss) 1,000 mls @ 999 mls/hr IV .Q1H1M ONE Stop: 10/08/23 19:25 Last Infusion: 10/08/23 19:51 Dose: Infused Documented By: Admin: 10/08/23 18:37 Dose: 999 mls/hr Documented By: CHRIS Famotidine (Pepcid 20mg Iv Push) 20 mg in 5 mls @ 2.5 mls/min IV NOW STA Stop: 10/08/23 18:29 Last Admin: 10/08/23 18:37 Dose: 2.5 mls/min Documented By: CHRIS Acetaminophen (Ofirmev) 1,000 mg in 100 mls @ 400 mls/hr IV NOW STA Stop: 10/08/23 19:40 Last Infusion: 10/08/23 20:24 Dose: Infused Documented By: Admin: 10/08/23 19:37 Dose: 400 mls/hr Documented By: ALIZA Sodium Chloride (Nss) 1,000 mls @ 999 mls/hr IV .Q1H1M ONE Stop: 10/08/23 20:35 Last Infusion: 10/08/23 20:52 Dose: Infused Documented By: Admin: 10/08/23 19:38 Dose: 999 mls/hr Documented By: ALIZA Ioversol (Optiray 320 500ml) 89 ml IV ONCE ONE Stop: 10/08/23 16:38 Last Admin: 10/08/23 16:38 Dose: 89 ml Documented By: MARGARITO Ondansetron HCl (Ondansetron Inj 2 Mg/Ml 2 Ml Vial) 4 mg IV NOW STA Stop: 10/08/23 14:55 Last Admin: 10/08/23 19:06 Dose: Not Given Documented By: ALIZA Ondansetron HCl (Ondansetron Inj 2 Mg/Ml 2 Ml Vial) 4 mg IV NOW STA Stop: 10/08/23 19:27 Last Admin: 10/08/23 19:37 Dose: 4 mg Documented By: ALIZA Sucralfate (Sucralfate 1 Gm/10 Ml Udc) 1 gm PO NOW STA Stop: 10/08/23 19:27 Last Admin: 10/08/23 19:37 Dose: 1 gm Documented By: ALIZA Imaging Data Radiologist's Impression: Abdomen/Pelvis CT 10/08/23 14:54 CT OF THE ABDOMEN AND PELVIS WITH CONTRAST CLINICAL HISTORY: Right lower quadrant abdominal pain. COMPARISON STUDY: CT of the abdomen and pelvis August 04, 2022. TECHNIQUE: Following IV administration of 89 mL of Optiray, axial images of the abdomen and pelvis were obtained from the lung bases to the proximal femurs. Images were reviewed in the axial, sagittal, and coronal planes. IV contrast was administered without complication. Automated exposure control was utilized for the study. A dose lowering technique was utilized adhering to the principles of ALARA. CT DOSE: 428.56 mGy.cm FINDINGS: Lung bases are unremarkable. No pneumatosis, free air or portal venous gas is present. Subcentimeter right hepatic lobe lesion is again noted. This is benign. Slight dilatation of the common bile duct is unchanged and likely related to cholecystectomy. There is hepatic steatosis. Spleen, adrenal glands, kidneys and pancreas are normal. There is no hydronephrosis. There is no evidence for acute appendicitis. Small and large bowel are mildly fluid-filled. There is no evidence for a bowel obstruction status post Mario-en-Y gastric bypass.. Segmental left lower quadrant small bowel intussusception is of doubtful significance. Major vasculature is patent. No lymphadenopathy. No fluid collections are present. IMPRESSION: 1. No evidence for acute appendicitis. 2. No bowel obstruction. No bowel wall thickening. Mildly fluid-filled small and large bowel. 3. Short segment left lower quadrant small bowel intussusception which is of doubtful significance. 4. Hepatic steatosis. ACT 112: Negative or not required by law. Electronically signed by: Jenaro Elizabeth M.D. 10/08/2023 4:53 PM Discharge Plan Visit Data Chief Complaint: GI Assessment Stated Complaint: ABDOMINAL PAIN, DIARRHEA ED Provider: Tigre Burnham Discharge Problem: Diarrhea, Dehydration, IBS (irritable bowel syndrome), S/P gastric bypass Forms Stand Alone Forms: [facility] Prescriptions Prescriptions: No Action pantoprazole [Protonix] 40 mg tablet,delayed release (DR/EC) 40 mg PO DAILY Qty: 90 3RF ondansetron HCl 4 mg tablet 4 mg PO Q6H PRN (Reason: IBS Flare-up, nausea) Qty: 15 1RF cholecalciferol (vitamin D3) 125 mcg (5,000 unit) capsule 125 mcg PO DAILY Qty: 30 2RF Flintstones Complete (iron) Tablet,Chewable 2 tab PO DAILY Rx Instructions: administer with a meal biotin 1 mg capsule 1 mg PO DAILY cyanocobalamin (vitamin B-12) [Vitamin B-12] 1,000 mcg Tablet 1,000 mcg PO .Q WED acetaminophen [Tylenol Extra Strength] 500 mg Tablet 1,000 mg PO Q6H PRN (Reason: Pain) Vitron-C 65 mg iron- 125 mg Tablet,Delayed Release (Dr/Ec) 2 tab PO DAILY Referrals Referrals: Oneyda Gaitan MD [Primary Care Provider] - Discharge Problem: Diarrhea Qualifiers: Diarrhea type: unspecified type Qualified Code(s): R19.7 - Diarrhea, unspecified IBS (irritable bowel syndrome) Qualifiers: Irritable bowel syndrome type: unspecified Qualified Code(s): K58.9 - Irritable bowel syndrome without diarrhea
[2023-10-08 22:25] LABS: Adenovirus F 40/41 PCR Not Detected (NotDetected); Astrovirus PCR Not Detected (NotDetected); Campylobacter PCR Not Detected (NotDetected); Cryptosporidium PCR Not Detected (NotDetected); Cyclospora cayetanensis PCR Not Detected (NotDetected); Entamoeba histolytica PCR Not Detected (NotDetected); Enteroaggregative E.coli(EAEC) Not Detected (NotDetected); Enteropathogenic E.coli (EPEC) Not Detected (NotDetected); Enterotoxigenic E.coli (ETEC) Not Detected (NotDetected); Giardia lamblia PCR Not Detected (NotDetected); Norovirus GI/GII PCR Not Detected (NotDetected); Plesiomonas shigelloides PCR Not Detected (NotDetected); Rotavirus A PCR Not Detected (NotDetected); Salmonella PCR Not Detected (NotDetected); Sapovirus PCR Not Detected (NotDetected); Shiga-like Toxin E.coli (STEC) Not Detected (NotDetected); Shigella/Enteroinvasive E.coli Not Detected (NotDetected); Vibrio cholerae PCR Not Detected (NotDetected); Vibrio species PCR Not Detected (NotDetected); Yersinia enterocolitica PCR Not Detected (NotDetected)
[2023-10-08] MEDS ORDERED: LORazepam 1 MG/1 ML SYR ED Inj Use IV STA (23:03)
[2023-10-09] MEDS ORDERED: PANTOprazole 40 MG in SYRINGE 0 ML IV ONE (00:30)
[2023-10-09] MEDS: LACTATED RINGER'S 1,000 ML IV SCH ×2 (00:38→07:56)
[2023-10-09] MEDS ORDERED: ONDANSETRON INJ 2 MG/ML 2 ML VIAL IV PRN (03:00)
--- NOTE | 2023-10-09 03:36 | History & Physical Report ---
Date of Service October 09, 2023 Assessment & Plan (1) Dehydration: (2) Diarrhea: (3) S/P gastric bypass: (4) Left lower quadrant abdominal pain: (5) GERD without esophagitis: Plan Diarrhea/left lower quadrant abdominal pain- Stool PCR negative BioFire negative CT scan of abdomen and pelvis shows left lower quadrant small bowel small area of intussusception of doubtful clinical significance From the ED patient received the following: Zofran 4 mg IV, Tylenol 1 g IV, normal saline 1 L boluses x 2, famotidine 20 mg IV, Carafate 1 g p.o., Bentyl 20 mg IM. The symptoms the patient is having she has had before, however, these appear to be significantly worse this time. Acute infection is unlikely with stool PCR and BioFire testing negative Differential should include: Exocrine pancreatic insufficiency, small bowel overgrowth syndrome, post cholecystectomy diarrhea, post gastric bypass syndrome Will place patient on pantoprazole 40 mg IV, Zofran 4 mg IV every 6 hours as needed, LR at 150 mL/h, and Tylenol 1 g IV every 8 hours as needed for pain or fever. When patient is feeling well enough she should get a trial of cholestyramine, initially starting at 1 dose daily, and titrating up to maximum of 4 doses daily if symptoms improve Other than ordering a D xylose absorption test, empiric treatment with pancreatic enzymes for exocrine pancreatic insufficiency, or Xifaxan for small bowel overgrowth syndrome are considerations. Patient did have an abdominal MRI on 05/11/2019, and if there were concern regarding SMA syndrome that could be repeated When patient is better able to take oral medications, can resume all her usual supplements of biotin, B12, iron and vitamin C, and pediatric multivitamin with iron Dehydration- Urine specific gravity greater than 1.045 IV fluids as above Recheck laboratories in a.m. Admission and Anticipated Discharge Date Admission Date: October 09, 2023 History of Present Illness Chief Complaint: The patient presents to the emergency department with complaint of persistent nausea, abdominal pain and cramping with over 20 episodes of loose stools in the past 24 hours Primary Care Provider: Oneyda Gaitan MD The patient is a 53-year-old female with a past medical history including gastric bypass status, colon diverticulosis, anxiety, GERD without esophagitis, hyperlipidemia, hypothyroidism, GERD, IBS and cluster headaches. The patient has had episodes of frequent stools on and off since she has had her gallbladder removed. She does have periodic endoscopies performed, and reports that her most recent was about 2 to 3 years ago, and is due for another one in November or December. She denies any recent travels or sick exposures. She denies any questionable food intakes Allergies Allergy/AdvReac Type Severity Reaction Status Date / Time strawberry AdvReac Severe Anaphylaxis Verified 10/08/23 23:02 oxycodone [From Percocet] AdvReac Mild Itchy Verified 10/08/23 23:02 Home Medications Medication Instructions Recorded Confirmed Type cholecalciferol (vitamin D3) 125 125 mcg PO DAILY #30 caps 04/17/21 10/08/23 Rx mcg (5,000 unit) capsule pediatric [id number] 2 tab PO DAILY 06/30/21 10/08/23 History (Flintstones Complete (iron) chewable tablet) biotin 1 mg capsule 1 mg PO DAILY 10/02/21 10/08/23 History pantoprazole 40 mg tablet,delayed 40 mg PO DAILY #90 tabs 04/28/23 10/08/23 Rx release (Protonix) ondansetron HCl 4 mg tablet 4 mg PO Q6H PRN IBS Flare-up, 06/28/23 10/08/23 Rx nausea #15 tabs acetaminophen 500 mg tablet 1,000 mg PO Q6H PRN Pain 10/08/23 10/08/23 History (Tylenol Extra Strength) cyanocobalamin (vitamin B-12) 1,000 mcg PO .Q WED 10/08/23 10/08/23 History 1,000 mcg tablet (Vitamin B-12) iron,carbonyl 65 mg-vitamin C 125 2 tab PO DAILY 10/08/23 10/08/23 History mg tablet,delayed release (Vitron-C) Past Med/Surg History Medical History Right lower quadrant abdominal pain Tick bite Fatigue Elevated blood pressure reading Diverticulosis of colon Anxiety Abnormal weight gain GERD without esophagitis Headache Hyperlipidemia Hypothyroidism, unspecified Migraine Obesity, unspecified Headaches, cluster GERD (gastroesophageal reflux disease) IBS (irritable bowel syndrome) Surgical History S/P gastric bypass H/O laparoscopy exploratory Hx of breast biopsy percutaneous needle core Status post tubal ligation Cholecystectomy planned History of hysterectomy Family History Aunt Migraines Breast cancer Mother Hypothyroidism A-fib Father Cardiac disorder Diabetes Grandfather (Maternal) Cardiac disorder Diabetes Grandfather (Paternal) Cardiac disorder Prostate cancer Family/Other Hypertension Heart disease Kidney disease Liver disease Other Anemia Breast lump Endometriosis Fibroids Ovarian cyst Social History Smoking Status: Never smoker Second Hand Exposure: No; Do You Dip or Chew Tobacco: No; Hx Alcohol Use: Yes Alcohol type: wine Hx Substance Use: No Preferred Language: Kinyarwanda Communication Ability: Effective Visual Impairment: No Limitations Hearing Ability: Normal Quality Coordinator Required: No Beliefs That Will Affect Care: None marital status: Current Living Situation: Spouse current occupational status: employed 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 Other Information That Helps Us Care for You: No Feels Safe at Home: Yes Safety Concerns: Feels Safe At This Time Assistive Devices: None Review of Systems Review of Systems: The patient denies chest pain, palpitations, shortness of breath, dyspnea on exertion, cough, lower extremity swelling, sore throat, fevers, chills, sweats, blood in urine or stool, dysuria, urinary frequency or urgency, lightheadedness, dizziness, headache, memory loss, loss of consciousness, rash, abnormal bruising or bleeding, imbalance, focal or generalized weakness, numbness or tingling in arms or legs, generalized arthralgias or myalgias, back or neck pain, or night sweats. The review of systems is otherwise negative other than for that already noted above, and at least 10 systems have been reviewed. Physical Exam Physical Exam: The patient is awake, alert and oriented 3, well developed and well nourished, normocephalic and atraumatic, lying in bed and is in mild to moderate distress secondary to abdominal cramping. HEENT--PERRL, EOMI, mucous membranes and oropharynx moderately dry. Neck--supple. No JVD. No bruits. Thyroid normal, trachea midline, no adenopathy. Heart--normal S1 and S2. No murmurs, rubs or gallops. Lungs--clear bilaterally, no respiratory distress, no accessory muscle use. Abdomen--normal bowel sounds and soft. Tender over periumbilical and left lower quadrant areas Extremities--no cyanosis or clubbing. No edema. Dermatologic--normal skin turgor, normal color, no abnormal lymph nodes, no rash. Neurologic--cranial nerves II through XII grossly intact. Rheumatologic--normal range of motion. Psychiatric--normal affect. Results & Data Results & Data Vital Signs (Past 12 Hours) Vital Signs Temp Pulse Pulse Resp BP BP Pulse Ox 10/09/23 02:12 36.5 C 64 16 145/82 H 99 10/09/23 01:00 62 16 112/68 97 10/09/23 00:00 60 16 130/75 98 10/08/23 23:00 78 12 146/116 H 96 10/08/23 21:59 58 L 18 117/66 98 10/08/23 21:58 55 L 10/08/23 19:49 81 18 145/96 H 10/08/23 18:44 70 18 136/83 96 O2 Del Method 10/09/23 02:12 Room Air 10/09/23 01:00 10/09/23 00:00 10/08/23 23:00 10/08/23 21:59 Room Air 10/08/23 21:58 10/08/23 19:49 Room Air 10/08/23 18:44 Room Air Laboratory Results Laboratory Results WBC 6.47 K/ul (4.8-10.8) 10/08/23 15:40 RBC 4.27 M/uL (4.20-5.40) 10/08/23 15:40 Hgb 11.7 g/dl (12.0-16.0) L 10/08/23 15:40 Hct 37.9 % (37.0-47.0) 10/08/23 15:40 MCV 88.8 fL (80.0-100.0) 10/08/23 15:40 MCH 27.4 pg (25.0-34.0) 10/08/23 15:40 MCHC 30.9 g/dL (32.0-36.0) L 10/08/23 15:40 RDW Std Deviation 42.6 fL (36.4-46.3) 10/08/23 15:40 RDW Coeff of Rowdy 13.2 % (11.5-14.5) 10/08/23 15:40 Plt Count 267 K/uL (130-400) 10/08/23 15:40 MPV 9.5 fL (9.4-12.4) 10/08/23 15:40 Immature Gran % (Auto) 0.3 % 10/08/23 15:40 Neut % (Auto) 57.5 % 10/08/23 15:40 Lymph % (Auto) 31.4 % 10/08/23 15:40 Wolfe % (Auto) 8.0 % 10/08/23 15:40 Eos % (Auto) 2.2 % 10/08/23 15:40 Baso % (Auto) 0.6 % 10/08/23 15:40 Neut # (Auto) 3.72 K/uL (1.40-6.50) 10/08/23 15:40 Lymph # (Auto) 2.03 K/uL (1.20-3.40) 10/08/23 15:40 Wolfe # (Auto) 0.52 K/uL (0.11-0.59) 10/08/23 15:40 Eos # (Auto) 0.14 K/uL (0.00-0.50) 10/08/23 15:40 Baso # (Auto) 0.04 K/uL (0.00-0.20) 10/08/23 15:40 Immature Gran # (Auto) 0.02 K/uL (0.01-0.20) 10/08/23 15:40 Sodium 142 mmol/L (136-145) 10/08/23 15:40 Potassium 3.8 mmol/L (3.5-5.1) 10/08/23 15:40 Chloride 113 mmol/L (98-107) H 10/08/23 15:40 Carbon Dioxide 23 mmol/L (21-32) 10/08/23 15:40 Anion Gap 6 (3-11) 10/08/23 15:40 BUN 17 mg/dl (6-23) 10/08/23 15:40 Creatinine 0.83 mg/dl (0.6-1.2) 10/08/23 15:40 Est Cr Clr Drug Dosing 68.5 ml/min 10/08/23 15:40 Est GFR ( Amer) 94.0 ml/min 10/08/23 15:40 Est GFR (Non-Af Amer) 81.1 ml/min 10/08/23 15:40 BUN/Creatinine Ratio 20.5 (10-20) H 10/08/23 15:40 Glucose 84 mg/dl (70-99(Fasting)) 10/08/23 15:40 Calcium 8.7 mg/dl (8.6-10.3) 10/08/23 15:40 Total Bilirubin 0.3 mg/dl (0.2-1.0) 10/08/23 15:40 AST 16 U/L (13-39) 10/08/23 15:40 ALT 16 U/L (7-52) 10/08/23 15:40 Alkaline Phosphatase 210 U/L (34-104) H 10/08/23 15:40 Total Creatine Kinase 50 U/L (26-192) 10/08/23 15:40 Total Protein 6.8 gm/dl (6.0-8.3) 10/08/23 15:40 Albumin 3.9 gm/dl (3.4-5.0) 10/08/23 15:40 Globulin 2.9 gm/dl (2.5-4.0) 10/08/23 15:40 Albumin/Globulin Ratio 1.3 (0.9-2) 10/08/23 15:40 Lipase 13 U/L (11-82) 10/08/23 15:40 Urine Color Yellow 10/08/23 20:19 Urine Appearance Clear (Clear) 10/08/23 20:19 Urine pH 5.0 (4.5-7.5) 10/08/23 20:19 Ur Specific [place] > 1.045 (1.000-1.030) H 10/08/23 20:19 Urine Protein Negative (Negative) 10/08/23 20:19 Urine Glucose (UA) Negative (Negative) 10/08/23 20:19 Urine Ketones Negative (Negative) 10/08/23 20:19 Urine Blood Negative (Negative) 10/08/23 20:19 Urine Nitrite Negative (Negative) 10/08/23 20:19 Urine Bilirubin Negative (Negative) 10/08/23 20:19 Urine Urobilinogen Negative (Negative) 10/08/23 20:19 Ur Leukocyte Esterase Negative (Negative) 10/08/23 20:19 Stl C. cayetanensis PCR Cancelled 10/08/23 Unknown Stool Rotavirus A PCR Cancelled 10/08/23 Unknown Stl Adenov F 40/41 PCR Cancelled 10/08/23 Unknown Stool Astrovirus (PCR) Cancelled 10/08/23 Unknown Stool Campylobacter PCR Cancelled 10/08/23 Unknown Stl C. diff Tox B Gene Negative Cdiff Gene (Neg) 10/08/23 Unknown Stool Cryptosporidium PCR Cancelled 10/08/23 Unknown Stl E.coli Shiga Tox PCR Cancelled 10/08/23 Unknown Stool E coli O157 PCR Cancelled 10/08/23 Unknown Stl Enterotoxigenic E PCR Cancelled 10/08/23 Unknown Stool EPEC (PCR) Cancelled 10/08/23 Unknown Stool EAEC (PCR) Cancelled 10/08/23 Unknown Stl E. histolytica PCR Cancelled 10/08/23 Unknown Stool Giardia Lamblia PCR Cancelled 10/08/23 Unknown Stool Salmonella PCR Cancelled 10/08/23 Unknown Stool Sapovirus (PCR) Cancelled 10/08/23 Unknown Stl P. shigelloides PCR Cancelled 10/08/23 Unknown Stl Shigella/EIEC PCR Cancelled 10/08/[address] Y.enterocolitica PCR Cancelled 10/08/23 Unknown Stool Vibrio (PCR) Cancelled 10/08/23 Unknown Stl Vibrio cholerae PCR Cancelled 10/08/23 Unknown Stl Norovirus GI/GII PCR Cancelled 10/08/23 Unknown Adenovirus (PCR) Not Detected (NotDetected) 10/08/23 Unknown B. pertussis DNA (PCR) Not Detected (NotDetected) 10/08/23 Unknown B.parapertussis DNA PCR Not Detected (NotDetected) 10/08/23 Unknown C. pneumoniae DNA (PCR) Not Detected (NotDetected) 10/08/23 Unknown Coronavirus OC43 (PCR) Not Detected (NotDetected) 10/08/23 Unknown Coronavirus HKU1 (PCR) Not Detected (NotDetected) 10/08/23 Unknown Coronavirus 229E (PCR) Not Detected (NotDetected) 10/08/23 Unknown SARS-CoV-2 (PCR) Not Detected (NotDetected) 10/08/23 Unknown Coronavirus NL63 (PCR) Not Detected (NotDetected) 10/08/23 Unknown Human Metapneumovir PCR Not Detected (NotDetected) 10/08/23 Unknown Influenza Type A (PCR) Not Detected (NotDetected) 10/08/23 Unknown Influenza Type B (PCR) Not Detected (NotDetected) 10/08/23 Unknown M. pneumoniae (PCR) Not Detected (NotDetected) 10/08/23 Unknown Parainfluenza 1 (PCR) Not Detected (NotDetected) 10/08/23 Unknown Parainfluenza 2 (PCR) Not Detected (NotDetected) 10/08/23 Unknown Parainfluenza 3 (PCR) Not Detected (NotDetected) 10/08/23 Unknown Parainfluenza 4 (PCR) Not Detected (NotDetected) 10/08/23 Unknown RSV (PCR) Not Detected (NotDetected) 10/08/23 Unknown Entero/Rhino (PCR) Not Detected (NotDetected) 10/08/23 Unknown Impressions Abdomen/Pelvis CT 10/08/23 14:54 CT OF THE ABDOMEN AND PELVIS WITH CONTRAST CLINICAL HISTORY: Right lower quadrant abdominal pain. COMPARISON STUDY: CT of the abdomen and pelvis August 04, 2022. TECHNIQUE: Following IV administration of 89 mL of Optiray, axial images of the abdomen and pelvis were obtained from the lung bases to the proximal femurs. Images were reviewed in the axial, sagittal, and coronal planes. IV contrast was administered without complication. Automated exposure control was utilized for the study. A dose lowering technique was utilized adhering to the principles of ALARA. CT DOSE: 428.56 mGy.cm FINDINGS: Lung bases are unremarkable. No pneumatosis, free air or portal venous gas is present. Subcentimeter right hepatic lobe lesion is again noted. This is benign. Slight dilatation of the common bile duct is unchanged and likely related to cholecystectomy. There is hepatic steatosis. Spleen, adrenal glands, kidneys and pancreas are normal. There is no hydronephrosis. There is no evidence for acute appendicitis. Small and large bowel are mildly fluid-filled. There is no evidence for a bowel obstruction status post Mario-en-Y gastric bypass.. Segmental left lower quadrant small bowel intussusception is of doubtful significance. Major vasculature is patent. No lymphadenopathy. No fluid collections are present. IMPRESSION: 1. No evidence for acute appendicitis. 2. No bowel obstruction. No bowel wall thickening. Mildly fluid-filled small and large bowel. 3. Short segment left lower quadrant small bowel intussusception which is of doubtful significance. 4. Hepatic steatosis. ACT 112: Negative or not required by law. Electronically signed by: Jenaro Elizabeth M.D. 10/08/2023 4:53 PM Code Status & VTE Plan Code Status Full code VTE Prophylaxis Plan VTE Prophylaxis will be ordered: Yes PG Care Time/CCT Total # of Minutes Spent Total Time Spent with Patient: Total time spent is greater than 50% in coordination of care (as documented) at patient's floor/unit and/or counseling patient: Coding Level of Care Code 99533 INT INP/OBS CARE 3/75MIN Diagnoses Dehydration E86.0 Diarrhea R19.7 Diarrhea type: unspecified type S/P gastric bypass Z98.84 Left lower quadrant abdominal pain R10.32 GERD without esophagitis K21.9 (2) Diarrhea Diarrhea type: unspecified type Qualified Code(s): R19.7 - Diarrhea, un specified
[2023-10-09 06:59] LABS: Basophils # (auto) 0.04 K/uL (0.00-0.20); Basophils % (auto) 0.7 %; Eosinophils # (auto) 0.24 K/uL (0.00-0.50); Eosinophils % (auto) 4.3 %; Hematocrit (blood only) 31.5 % (37.0-47.0); Hemoglobin 9.8 g/dl (12.0-16.0); Immature Granulocytes # (auto) 0.01 K/uL (0.01-0.20); Immature Granulocytes % (auto) 0.2 %; Lymphocytes # (auto) 1.84 K/uL (1.20-3.40); Lymphocytes % (auto) 33.2 %; Mean Corpuscular Hemoglobin 27.1 pg (25.0-34.0); Mean Corpuscular Hgb Conc 31.1 g/dL (32.0-36.0); Mean Corpuscular Volume 87.3 fL (80.0-100.0); Mean Platelet Volume 9.5 fL (9.4-12.4); Monocytes # (auto) 0.54 K/uL (0.11-0.59); Monocytes % (auto) 9.7 %; Neutrophils # (auto) 2.88 K/uL (1.40-6.50); Neutrophils % (auto) 51.9 %; Platelet Count 198 K/uL (130-400); RDW Coefficient of Variation 13.1 % (11.5-14.5); RDW Standard Deviation 41.5 fL (36.4-46.3); Red Blood Count 3.61 M/uL (4.20-5.40); White Blood Count 5.55 K/ul (4.8-10.8)
[2023-10-09 07:22] LABS: Albumin Globulin Ratio 1.4 (0.9-2); BUN Creatinine Ratio 20.9 (10-20); Bilirubin,Total 0.3 mg/dl (0.2-1.0); Calcium 8.4 mg/dl (8.6-10.3); Creatinine Clr Calc Pharmacy 84.8 ml/min; Est GFR (African American) 117.1 ml/min; Est GFR (Non-African American) 101.1 ml/min; Globulin 2.1 gm/dl (2.5-4.0); Potassium 3.6 mmol/L (3.5-5.1); Total Protein 5.1 gm/dl (6.0-8.3)
[2023-10-09] MEDS ORDERED: ACETAMINOPHEN 1,000 MG/100 ML VIAL IV PRN (08:00)
[2023-10-09 08:47] LABS: Magnesium 1.5 mg/dl (1.7-2.4)
[2023-10-09] MEDS ORDERED: PANTOprazole 40 MG in SYRINGE 0 ML IV SCH (11:00)
[2023-10-09] MEDS: MAGNESIUM SULFATE / D5W 1 GM/100 ML BAG IV SCH ×3 (11:24→14:21)
[2023-10-09] MEDS ORDERED: COLESTIPOL HCL 1 GM TAB PO SCH (12:15)
--- NOTE | 2023-10-09 13:32 | Discharge Summary ---
Discharge Summary Date of Service October 09, 2023 Notes For Next Care Provider Medication Changes From Visit Added colestipol 1gram po qday Admission HPI Per Admitting Provider The patient is a 53-year-old female with a past medical history including gastric bypass status, colon diverticulosis, anxiety, GERD without esophagitis, hyperlipidemia, hypothyroidism, GERD, IBS and cluster headaches. The patient has had episodes of frequent stools on and off since she has had her gallbladder removed. She does have periodic endoscopies performed, and reports that her most recent was about 2 to 3 years ago, and is due for another one in November or December. She denies any recent travels or sick exposures. She denies any questionable food intakes Principal Dx & Hospital Course #1 = Principal Diagnosis (1) Dehydration: resolved with IVFs and able to tolerate po prior to discharge 2/2 diarrhea (2) Diarrhea: possibly due to dumping syndrome Stool PCR and C. diff negative; no other close contacts with GI illness so far avoid artificial sweeteners and glucose rich foods imodium prn start colestipol 1gram po daily fo rher more chronic loose stools possibly from post-cholecystectomy diarrhea vs IBS consider workup for pancreatic insufficiency as outpt with her GI doctor or PCP (3) S/P gastric bypass: noted continue usual supplements (4) Left lower quadrant abdominal pain: resolved pain was actually more in mid to right lower abd intussusception seen of SB in LLQ on CT but case discussed with Surgery on admission and not significant pain is resolved (5) GERD without esophagitis: continue PPI Plan Dispo-stable for dc to home Discharge Exam Constitutional WD/WN, vitals as above Neck trachea midline, no thyromegaly Respiratory normal respiratory effort, lungs clear to auscultation Cardiovascular RRR, no murmur, no edema Chest (Breasts) Chest: normal inspection of chest Gastrointestinal (Abdomen) normal bowel sounds, soft, nontender, no hepatosplenomegaly Musculoskeletal Extremities: extremities normal to inspection; no cyanosis and no clubbing Skin no rashes, warm and dry Neurologic moves all extremities and awake; no focal motor deficits Psychiatric A+Ox3, euthymic affect Lymphatic no lymphedema Updated Medication List Medication Instructions Recorded Confirmed Type cholecalciferol (vitamin D3) 125 125 mcg PO DAILY #30 caps 04/17/21 10/08/23 Rx mcg (5,000 unit) capsule pediatric [id number] 2 tab PO DAILY 06/30/21 10/08/23 History (Flintstones Complete (iron) chewable tablet) biotin 1 mg capsule 1 mg PO DAILY 10/02/21 10/08/23 History pantoprazole 40 mg tablet,delayed 40 mg PO DAILY #90 tabs 04/28/23 10/08/23 Rx release (Protonix) ondansetron HCl 4 mg tablet 4 mg PO Q6H PRN IBS Flare-up, 06/28/23 10/08/23 Rx nausea #15 tabs acetaminophen 500 mg tablet 1,000 mg PO Q6H PRN Pain 10/08/23 10/08/23 History (Tylenol Extra Strength) cyanocobalamin (vitamin B-12) 1,000 mcg PO .Q WED 10/08/23 10/08/23 History 1,000 mcg tablet (Vitamin B-12) iron,carbonyl 65 mg-vitamin C 125 2 tab PO DAILY 10/08/23 10/08/23 History mg tablet,delayed release (Vitron-C) colestipol 1 gram tablet (Colestid) 1 g PO DAILY #30 tabs 10/09/23 Rx Hospital Stay Data Consultations 10/08/23 23:03 ED Decision to Admit Stat Diagnostic Imagining Performed 10/08/23 14:54 CT abd pelvis IV con only Stat Pending Results Patient Have Any Pending Studies at Discharge: No Discharge Instructions Given to Patient (Per Discharging Provider) You were admitted with diarrhea that possibly could be from dumping syndrome. This has resolved. For your chronic loose stools, you were restarted on colestipol 1 gram once daily. Try to avoid artificial sweeteners and carbohydrate rich foods. Total Time Total Time Spent Total Time Spent (In Minutes): 35 min Coding Level of Care Code 24516 INP/OBS DISCH >30 MIN Diagnoses Dehydration E86.0 Diarrhea R19.7 Diarrhea type: unspecified type S/P gastric bypass Z98.84 Left lower quadrant abdominal pain R10.32 GERD without esophagitis K21.9
== END 2023-10-09 15:59 | disposition home or self-care (01) ==
LOC: 2W 14:39 → ED 14:39 → SUATTDRO 10-09 00:14 → 2W 10-09 01:25